=== PATIENT | male | born 1930 | race Native Hawaiian/Other Pacific Islander ===

== ENCOUNTER 2022-03-26 13:31 | Inpatient (IN) | payer MEDICARE, OTHER ==
[~2022-03-26] VITALS: Ht 177.8 cm; Wt 90.0 kg
[2022-03-26] MEDS ORDERED: ALLO-97 PO (13:47)
[2022-03-26] MEDS ORDERED: SODIUM CHLORIDE 0.9% 100 ML ONE (13:47)
[2022-03-26] MEDS ORDERED: APIX2.5T PO (13:47)
[2022-03-26] MEDS ORDERED: IOHEXOL 350 MG/ML 100 ML VIAL ONE (13:47)
[2022-03-26] MEDS ORDERED: INSU100V SQ (13:52)
[2022-03-26] MEDS ORDERED: GABA-1216 PO (13:52)
[2022-03-26] MEDS ORDERED: METO25 PO (13:52)
[2022-03-26] MEDS ORDERED: CHOL25TA4 PO (13:52)
[2022-03-26] MEDS ORDERED: PRAV20TA4 PO (13:52)
[2022-03-26] MEDS ORDERED: TAMS-13 PO (13:52)
[2022-03-26] MEDS ORDERED: INSLAN SQ (13:52)
[2022-03-26] MEDS ORDERED: FAMO20 PO (13:52)
[2022-03-26] MEDS ORDERED: SEMA7TAB2 PO (13:52)
[2022-03-26] MEDS ORDERED: FINA-27 PO (13:52)
[2022-03-26] MEDS ORDERED: QUET25TA PO (13:52)
[2022-03-26 14:07] LABS: BASOPHILS % (AUTO) 0.6 % (0.0-2.0); EOSINOPHILS % (AUTO) 3.4 % (1.0-6.0); HEMOGLOBIN 11.8 g/dL (13.5-17.5); LYMPHOCYTES % (AUTO) 22.5 % (22.0-44.0); MEAN CORPUSCULAR HEMOGLOBIN 31.9 pg (26.0-34.0); MEAN CORPUSCULAR HGB CONC 31.9 G/dL (31.0-37.0); MEAN CORPUSCULAR VOLUME 100 fL (80-100); MONOCYTES # (AUTO) 0.4 K/uL (0.1-1.0); MONOCYTES % (AUTO) 9.6 % (2.0-9.0); NEUTROPHILS # (AUTO) 2.8 K/uL (1.8-7.7); NEUTROPHILS % (AUTO) 63.9 % (40.0-70.0); PLATELET COUNT (AUTO) 123 K/uL (150-450); RED BLOOD CELL COUNT(AUTO) 3.69 MIL/uL (4.50-5.90); RED CELL DISTRIBUTION WIDTH 17.5 % (11.5-14.5)
[2022-03-26 14:26] LABS: CALCIUM, TOTAL 8.6 mg/dL (8.8-10.5); CREATININE 1.96 mg/dL (0.60-1.30)
[2022-03-26 14:27] LABS: INR 1.3 (0.9-1.1); PROTHROMBIN TIME 13.5 SEC (9.4-11.6)
[2022-03-26 14:31] LABS: ALBUMIN 2.7 g/dL (3.4-5.0); BILIRUBIN,TOTAL 1.9 mg/dL (0.1-1.0); TOTAL PROTEIN, SERUM 7.8 g/dL (6.4-8.2)
[2022-03-26] MEDS ORDERED: SODIUM CHLORIDE 0.9% 500 ML IV ONE ×2 (14:45)
[2022-03-26] MEDS ORDERED: POTA10CA45 PO (14:46)
[2022-03-26 14:50] LABS: APPEARANCE,URINE CLEAR (CLEAR); BILIRUBIN,URINE NEGATIVE (NEGATIVE); GLUCOSE, URINE (UA) NEGATIVE (NEGATIVE); KETONES,URINE NEGATIVE (NEGATIVE); LEUKOCYTE ESTERASE ,URINE NEGATIVE (NEGATIVE); NITRATE,URINE NEGATIVE (NEGATIVE); OCCULT BLOOD,URINE NEGATIVE (NEGATIVE); PROTEIN,URINE NEGATIVE (NEGATIVE); SPECIFIC GRAVITIY, URINE 1.021 (1.003-1.030); UROBILINOGEN,URINE <=1.0 mg/dL (<=1.0)
[2022-03-26 14:56] LABS: AMPHET/METH SCREEN,URINE NEGATIVE (NEGATIVE); BARBITURATE SCREEN, URINE NEGATIVE (NEGATIVE); BENZODIAZEPINES SCREEN,URINE NEGATIVE (NEGATIVE); CANNABINOID SCREEN,URINE NEGATIVE (NEGATIVE); COCAINE SCREEN,URINE NEGATIVE (NEGATIVE); METHADONE SCREEN, URINE NEGATIVE (NEGATIVE); OPIATE SCREEN,URINE NEGATIVE (NEGATIVE); PHENCYCLIDINE SCREEN,URINE NEGATIVE (NEGATIVE)
[2022-03-26 15:13] LABS: BACTERIA,URINE None Seen /HPF (None Seen); RBC,URINE None Seen /HPF (0-2); WBC,URINE None Seen /HPF (0-5)
[2022-03-26 17:22] LABS: COVID AG,FIA SOURCE NASAL SWAB
[2022-03-26] MEDS ORDERED: BISACODYL 10 MG RECTAL RECTAL SUPPOSITORY PR PRN (20:30)
[2022-03-26] MEDS ORDERED: ONDANSETRON HCL 4 MG/2 ML VIAL IVP PRN (20:30)
[2022-03-26] MEDS ORDERED: MAGNESIUM HYDROXIDE SUSPENSION 30 ML UDCUP PO PRN (20:30)
[2022-03-26] MEDS ORDERED: HYDROCODONE/ACETAMINOPHEN 5-325 MG TABLET PO PRN (20:30)
[2022-03-26] MEDS ORDERED: *CLINICAL-LEVOFLOXACIN IVPB DOSING CLINICAL ONE (20:45)
[2022-03-26] MEDS: METOPROLOL TARTRATE 25 MG TABLET PO SCH (21:00)
[2022-03-26] MEDS: PRAVASTATIN SODIUM 20 MG TABLET PO SCH (21:00)
[2022-03-26] MEDS: DOCUSATE SODIUM 100 MG CAPSULE PO SCH (21:00)
[2022-03-26] MEDS: TAMSULOSIN HCL 0.4 MG CAPSULE PO SCH (21:00)
[2022-03-26] MEDS: INSULIN GLARGINE,HUM.REC.ANLOG 100 UNITS/ML SQ SCH (21:20)
[2022-03-26] MEDS: LEVOFLOXACIN 750 MG/D5% WATER 150 ML IV SCH (21:33)
[2022-03-26 21:46] LABS: GLUCOSE,POINT OF CARE 102 MG/DL (70-110)
[2022-03-27 00:27] VITALS: BP 153/70
[2022-03-27 04:12] VITALS: BP 152/81
[2022-03-27 06:36] LABS: BASOPHILS % (AUTO) 0.2 % (0.0-2.0); EOSINOPHILS % (AUTO) 1.2 % (1.0-6.0); HEMATOCRIT 35.9 % (41-53); HEMOGLOBIN 11.6 g/dL (13.5-17.5); LYMPHOCYTES # (AUTO) 0.7 K/uL (1.0-4.8); MEAN CORPUSCULAR HEMOGLOBIN 32.1 pg (26.0-34.0); MEAN CORPUSCULAR HGB CONC 32.3 G/dL (31.0-37.0); MEAN CORPUSCULAR VOLUME 99 fL (80-100); MONOCYTES # (AUTO) 0.6 K/uL (0.1-1.0); MONOCYTES % (AUTO) 10.1 % (2.0-9.0); NEUTROPHILS # (AUTO) 4.2 K/uL (1.8-7.7); NEUTROPHILS % (AUTO) 76.5 % (40.0-70.0); PLATELET COUNT (AUTO) 110 K/uL (150-450); RED BLOOD CELL COUNT(AUTO) 3.61 MIL/uL (4.50-5.90); RED CELL DISTRIBUTION WIDTH 17.6 % (11.5-14.5)
[2022-03-27 06:57] LABS: CALCIUM, TOTAL 8.4 mg/dL (8.8-10.5); CREATININE 1.73 mg/dL (0.60-1.30); POTASSIUM 4.1 mmol/L (3.5-5.1)
[2022-03-27 07:30] VITALS: BP 138/74
[2022-03-27] MEDS ORDERED: PERMETHRIN 5% 60 GM CREAM TP ONE (08:00)
[2022-03-27] MEDS: APIXABAN 2.5 MG TABLET PO SCH ×3 (09:00→21:00)
[2022-03-27] MEDS: PANTOPRAZOLE SODIUM 40 MG DR TABLET PO SCH (09:35)
[2022-03-27] MEDS: DOCUSATE SODIUM 100 MG CAPSULE PO SCH ×2 (09:35→21:00)
[2022-03-27] MEDS: ALLOPURINOL 100 MG TABLET PO SCH (09:36)
[2022-03-27] MEDS: CHOLECALCIFEROL (VIT D3) 1,000 UNITS [25 MCG] TABLET PO SCH (09:36)
[2022-03-27] MEDS: FINASTERIDE 5 MG TABLET PO SCH (09:36)
[2022-03-27] MEDS: METOPROLOL TARTRATE 25 MG TABLET PO SCH ×2 (09:36→21:00)
[2022-03-27 11:31] VITALS: BP 152/83
[2022-03-27 15:40] VITALS: BP 159/94
[2022-03-27 20:16] LABS: GLUCOMETER DEV NAME(LOC) 5S.1B; GLUCOSE,POINT OF CARE 100 MG/DL (70-110)
[2022-03-27] MEDS: DEXTROSE 5%-0.45% SODIUM CHL 1,000 ML IV SCH (20:50)
[2022-03-27] MEDS: INSULIN GLARGINE,HUM.REC.ANLOG 100 UNITS/ML SQ SCH (20:52)
[2022-03-27] MEDS: TAMSULOSIN HCL 0.4 MG CAPSULE PO SCH (21:00)
[2022-03-27] MEDS: PRAVASTATIN SODIUM 20 MG TABLET PO SCH (21:00)
[2022-03-28] VITALS (7 sets, daily range): BP systolic 111–153; BP diastolic 89–118
[2022-03-28 06:45] LABS: BASOPHILS % (AUTO) 0.2 % (0.0-2.0); EOSINOPHILS % (AUTO) 0.2 % (1.0-6.0); HEMATOCRIT 36.6 % (41-53); HEMOGLOBIN 11.8 g/dL (13.5-17.5); LYMPHOCYTES # (AUTO) 0.6 K/uL (1.0-4.8); LYMPHOCYTES % (AUTO) 8.1 % (22.0-44.0); MEAN CORPUSCULAR HGB CONC 32.3 G/dL (31.0-37.0); MEAN CORPUSCULAR VOLUME 99 fL (80-100); MONOCYTES # (AUTO) 0.8 K/uL (0.1-1.0); MONOCYTES % (AUTO) 10.9 % (2.0-9.0); NEUTROPHILS % (AUTO) 80.6 % (40.0-70.0); PLATELET COUNT (AUTO) 123 K/uL (150-450); RED BLOOD CELL COUNT(AUTO) 3.69 MIL/uL (4.50-5.90); RED CELL DISTRIBUTION WIDTH 17.9 % (11.5-14.5)
[2022-03-28 07:01] LABS: CALCIUM, TOTAL 8.6 mg/dL (8.8-10.5); CREATININE 1.73 mg/dL (0.60-1.30); POTASSIUM 3.8 mmol/L (3.5-5.1)
[2022-03-28] MEDS: FINASTERIDE 5 MG TABLET PO SCH (09:00)
[2022-03-28] MEDS: METOPROLOL TARTRATE 25 MG TABLET PO SCH ×2 (09:00→19:57)
[2022-03-28] MEDS: CHOLECALCIFEROL (VIT D3) 1,000 UNITS [25 MCG] TABLET PO SCH (09:00)
[2022-03-28] MEDS: PANTOPRAZOLE SODIUM 40 MG DR TABLET PO SCH (09:00)
[2022-03-28] MEDS: DOCUSATE SODIUM 100 MG CAPSULE PO SCH ×2 (09:00→19:57)
[2022-03-28] MEDS: ALLOPURINOL 100 MG TABLET PO SCH (09:00)
[2022-03-28] MEDS ORDERED: HydrALAZINE HCL 20 MG/ML VIAL IVP PRN (11:45)
[2022-03-28] MEDS: DEXTROSE 5%-0.45% SODIUM CHL 1,000 ML IV SCH (13:06)
[2022-03-28] MEDS ORDERED: LORazepam 2 MG/ML VIAL IVP PRN (16:15)
[2022-03-28] MEDS: PRAVASTATIN SODIUM 20 MG TABLET PO SCH (19:57)
[2022-03-28] MEDS: TAMSULOSIN HCL 0.4 MG CAPSULE PO SCH (19:57)
[2022-03-28] MEDS: NYSTATIN 30 GM CREAM TP SCH (19:57)
[2022-03-28] MEDS: HEPARIN SODIUM,PORCINE 5,000 UNITS/ML VIAL SQ SCH (19:58)
[2022-03-28] MEDS: INSULIN GLARGINE,HUM.REC.ANLOG 100 UNITS/ML SQ SCH (20:11)
[2022-03-28] MEDS: LEVOFLOXACIN 750 MG/D5% WATER 150 ML IV SCH (20:13)
[2022-03-29 03:35] VITALS: BP 116/69
[2022-03-29 06:58] LABS: BASOPHILS % (AUTO) 0.2 % (0.0-2.0); EOSINOPHILS % (AUTO) 0.2 % (1.0-6.0); HEMATOCRIT 37.1 % (41-53); HEMOGLOBIN 11.9 g/dL (13.5-17.5); LYMPHOCYTES # (AUTO) 0.8 K/uL (1.0-4.8); LYMPHOCYTES % (AUTO) 11.9 % (22.0-44.0); MEAN CORPUSCULAR HEMOGLOBIN 32.2 pg (26.0-34.0); MEAN CORPUSCULAR HGB CONC 32.2 G/dL (31.0-37.0); MEAN CORPUSCULAR VOLUME 100 fL (80-100); MONOCYTES # (AUTO) 0.7 K/uL (0.1-1.0); MONOCYTES % (AUTO) 10.1 % (2.0-9.0); NEUTROPHILS # (AUTO) 5.3 K/uL (1.8-7.7); NEUTROPHILS % (AUTO) 77.6 % (40.0-70.0); PLATELET COUNT (AUTO) 121 K/uL (150-450); RED BLOOD CELL COUNT(AUTO) 3.71 MIL/uL (4.50-5.90); RED CELL DISTRIBUTION WIDTH 18.1 % (11.5-14.5)
[2022-03-29 07:08] LABS: CALCIUM, TOTAL 8.5 mg/dL (8.8-10.5); CREATININE 1.85 mg/dL (0.60-1.30); POTASSIUM 4.3 mmol/L (3.5-5.1)
[2022-03-29 08:27] VITALS: BP 114/75
[2022-03-29] MEDS: METOPROLOL TARTRATE 25 MG TABLET PO SCH ×2 (09:00→20:00)
[2022-03-29] MEDS: ALLOPURINOL 100 MG TABLET PO SCH (09:00)
[2022-03-29] MEDS: FINASTERIDE 5 MG TABLET PO SCH (09:00)
[2022-03-29] MEDS: DOCUSATE SODIUM 100 MG CAPSULE PO SCH ×2 (09:00→20:00)
[2022-03-29] MEDS: CHOLECALCIFEROL (VIT D3) 1,000 UNITS [25 MCG] TABLET PO SCH (09:00)
[2022-03-29] MEDS: PANTOPRAZOLE SODIUM 40 MG DR TABLET PO SCH (09:00)
[2022-03-29] MEDS: HEPARIN SODIUM,PORCINE 5,000 UNITS/ML VIAL SQ SCH ×2 (09:58→20:00)
[2022-03-29] MEDS: NYSTATIN 30 GM CREAM TP SCH ×2 (10:01→20:24)
[2022-03-29 11:41] VITALS: BP 122/77
[2022-03-29] MEDS ORDERED: WATER FOR INJECTION,STERILE 500 ML in DEXTROSE 5%-WATER 500 ML IV ONE (12:00)
[2022-03-29 12:36] LABS: GLUCOMETER DEV NAME(LOC) 5S.1B; GLUCOSE,POINT OF CARE 119 MG/DL (70-110)
[2022-03-29 15:12] VITALS: BP 115/70
[2022-03-29] MEDS: TAMSULOSIN HCL 0.4 MG CAPSULE PO SCH (20:00)
[2022-03-29] MEDS: PRAVASTATIN SODIUM 20 MG TABLET PO SCH (20:00)
[2022-03-29 20:10] VITALS: BP 118/69
[2022-03-29] MEDS: INSULIN GLARGINE,HUM.REC.ANLOG 100 UNITS/ML SQ SCH (20:25)
[2022-03-29 21:11] LABS: GLUCOMETER DEV NAME(LOC) 5S.1B; GLUCOSE,POINT OF CARE 147 MG/DL (70-110)
[2022-03-30 00:35] VITALS: BP 130/67
[2022-03-30 04:00] VITALS: BP 139/86
[2022-03-30 07:52] VITALS: BP 135/88
[2022-03-30] MEDS: METOPROLOL TARTRATE 25 MG TABLET PO SCH ×2 (08:48→21:00)
[2022-03-30] MEDS: ALLOPURINOL 100 MG TABLET PO SCH (08:49)
[2022-03-30] MEDS: PANTOPRAZOLE SODIUM 40 MG DR TABLET PO SCH (08:49)
[2022-03-30] MEDS: HEPARIN SODIUM,PORCINE 5,000 UNITS/ML VIAL SQ SCH ×2 (08:49→21:00)
[2022-03-30] MEDS: DOCUSATE SODIUM 100 MG CAPSULE PO SCH ×2 (08:49→21:00)
[2022-03-30] MEDS: CHOLECALCIFEROL (VIT D3) 1,000 UNITS [25 MCG] TABLET PO SCH (08:49)
[2022-03-30] MEDS: FINASTERIDE 5 MG TABLET PO SCH (08:49)
[2022-03-30] MEDS: NYSTATIN 30 GM CREAM TP SCH ×2 (08:50→21:45)
[2022-03-30 11:13] VITALS: BP 144/71
[2022-03-30] MEDS ORDERED: LORazepam 2 MG/ML VIAL IVP ONE ×2 (14:45→15:30)
[2022-03-30 15:14] VITALS: BP 98/58
[2022-03-30 19:27] VITALS: BP 126/88
[2022-03-30] MEDS: TAMSULOSIN HCL 0.4 MG CAPSULE PO SCH (21:00)
[2022-03-30] MEDS: INSULIN GLARGINE,HUM.REC.ANLOG 100 UNITS/ML SQ SCH (21:00)
[2022-03-30] MEDS: PRAVASTATIN SODIUM 20 MG TABLET PO SCH (21:00)
[2022-03-30] MEDS ORDERED: SODIUM CHLORIDE 0.9% 500 ML IV ONE (21:16)
[2022-03-30] MEDS: LEVOFLOXACIN 750 MG/D5% WATER 150 ML IV SCH (21:17)
[2022-03-30] MEDS ORDERED: SODIUM CHLORIDE 0.45% 1,000 ML IV ONE (22:30)
[2022-03-31 00:03] VITALS: BP 132/67
[2022-03-31 04:56] VITALS: BP 128/80
[2022-03-31 07:50] VITALS: BP 151/92
[2022-03-31 08:22] LABS: GLUCOMETER DEV NAME(LOC) 5S.2B; GLUCOSE,POINT OF CARE 78 MG/DL (70-110)
[2022-03-31] MEDS: PANTOPRAZOLE SODIUM 40 MG DR TABLET PO SCH (09:00)
[2022-03-31] MEDS: ALLOPURINOL 100 MG TABLET PO SCH (09:00)
[2022-03-31] MEDS: CHOLECALCIFEROL (VIT D3) 1,000 UNITS [25 MCG] TABLET PO SCH (09:00)
[2022-03-31] MEDS: FINASTERIDE 5 MG TABLET PO SCH (09:00)
[2022-03-31] MEDS: METOPROLOL TARTRATE 25 MG TABLET PO SCH ×2 (09:00→20:32)
[2022-03-31] MEDS: DOCUSATE SODIUM 100 MG CAPSULE PO SCH ×2 (09:00→20:32)
[2022-03-31] MEDS: HEPARIN SODIUM,PORCINE 5,000 UNITS/ML VIAL SQ SCH ×2 (09:43→21:00)
[2022-03-31] MEDS: NYSTATIN 30 GM CREAM TP SCH ×2 (09:44→21:07)
[2022-03-31 11:55] VITALS: BP 133/80
[2022-03-31] MEDS: DEXTROSE 50%-WATER 25 GM/50 ML SYRINGE IVP PRN (12:51)
[2022-03-31] MEDS: DEXTROSE 5%-0.9% SODIUM CHL 1,000 ML IV SCH (13:11)
[2022-03-31 17:00] VITALS: BP 120/60
[2022-03-31 20:18] VITALS: BP 135/71
[2022-03-31] MEDS: ZOLPIDEM TARTRATE 5 MG TABLET PO PRN (20:31)
[2022-03-31] MEDS: PRAVASTATIN SODIUM 20 MG TABLET PO SCH (20:32)
[2022-03-31] MEDS: TAMSULOSIN HCL 0.4 MG CAPSULE PO SCH (20:32)
[2022-03-31] MEDS: INSULIN GLARGINE,HUM.REC.ANLOG 100 UNITS/ML SQ SCH (20:39)
[2022-03-31 21:11] LABS: GLUCOMETER DEV NAME(LOC) 5S.2B; GLUCOSE,POINT OF CARE 131 MG/DL (70-110)
[2022-03-31 21:11] LABS: GLUCOMETER DEV NAME(LOC) 5S.2B; GLUCOSE,POINT OF CARE 63 MG/DL (70-110)
[2022-03-31 21:12] LABS: GLUCOMETER DEV NAME(LOC) 5S.2B; GLUCOSE,POINT OF CARE 166 MG/DL (70-110)
[2022-04-01 04:31] LABS: GLUCOMETER DEV NAME(LOC) 5S.1B; GLUCOSE,POINT OF CARE 133 MG/DL (70-110)
[2022-04-01 05:05] VITALS: BP 140/72
[2022-04-01 08:00] VITALS: BP 138/70
[2022-04-01] MEDS: DOCUSATE SODIUM 100 MG CAPSULE PO SCH ×2 (09:37→20:13)
[2022-04-01] MEDS: DEXTROSE 5%-0.9% SODIUM CHL 1,000 ML IV SCH ×2 (09:37→17:50)
[2022-04-01] MEDS: CHOLECALCIFEROL (VIT D3) 1,000 UNITS [25 MCG] TABLET PO SCH (09:38)
[2022-04-01] MEDS: METOPROLOL TARTRATE 25 MG TABLET PO SCH ×2 (09:38→20:13)
[2022-04-01] MEDS: ALLOPURINOL 100 MG TABLET PO SCH (09:38)
[2022-04-01] MEDS: FINASTERIDE 5 MG TABLET PO SCH (09:38)
[2022-04-01] MEDS: PANTOPRAZOLE SODIUM 40 MG DR TABLET PO SCH (09:38)
[2022-04-01] MEDS: HEPARIN SODIUM,PORCINE 5,000 UNITS/ML VIAL SQ SCH ×2 (09:39→20:12)
[2022-04-01] MEDS: NYSTATIN 30 GM CREAM TP SCH ×2 (09:39→22:44)
[2022-04-01] MEDS: DEXTROSE 50%-WATER 25 GM/50 ML SYRINGE IVP PRN (17:49)
[2022-04-01 18:16] LABS: GLUCOMETER DEV NAME(LOC) 5N.1C; GLUCOSE,POINT OF CARE 81 MG/DL (70-110)
[2022-04-01 18:26] LABS: GLUCOMETER DEV NAME(LOC) 5S.2B; GLUCOSE,POINT OF CARE 156 MG/DL (70-110)
[2022-04-01 18:26] LABS: GLUCOMETER DEV NAME(LOC) 5S.2B; GLUCOSE,POINT OF CARE 48 MG/DL (70-110)
[2022-04-01 19:46] VITALS: BP 126/72
[2022-04-01 20:06] LABS: GLUCOMETER DEV NAME(LOC) 5S.1B; GLUCOSE,POINT OF CARE 124 MG/DL (70-110)
[2022-04-01] MEDS: LEVOFLOXACIN 750 MG/D5% WATER 150 ML IV SCH (20:12)
[2022-04-01] MEDS: PRAVASTATIN SODIUM 20 MG TABLET PO SCH (20:13)
[2022-04-01] MEDS: TAMSULOSIN HCL 0.4 MG CAPSULE PO SCH (20:13)
[2022-04-01] MEDS: INSULIN GLARGINE,HUM.REC.ANLOG 100 UNITS/ML SQ SCH (21:00)
[2022-04-02 01:01] VITALS: BP 96/61
[2022-04-02] MEDS: ZOLPIDEM TARTRATE 5 MG TABLET PO PRN (02:47)
[2022-04-02 05:01] VITALS: BP 110/58
[2022-04-02] MEDS: DEXTROSE 5%-0.9% SODIUM CHL 1,000 ML IV SCH (05:55)
[2022-04-02 06:31] LABS: GLUCOMETER DEV NAME(LOC) 5S.2B; GLUCOSE,POINT OF CARE 103 MG/DL (70-110)
[2022-04-02 07:35] VITALS: BP 117/72
[2022-04-02 07:42] LABS: BASOPHILS % (AUTO) 0.2 % (0.0-2.0); EOSINOPHILS % (AUTO) 1.6 % (1.0-6.0); HEMATOCRIT 35.2 % (41-53); HEMOGLOBIN 10.9 g/dL (13.5-17.5); LYMPHOCYTES # (AUTO) 0.7 K/uL (1.0-4.8); LYMPHOCYTES % (AUTO) 12.5 % (22.0-44.0); MEAN CORPUSCULAR HGB CONC 30.9 G/dL (31.0-37.0); MEAN CORPUSCULAR VOLUME 101 fL (80-100); MONOCYTES # (AUTO) 0.6 K/uL (0.1-1.0); MONOCYTES % (AUTO) 10.4 % (2.0-9.0); NEUTROPHILS # (AUTO) 4.4 K/uL (1.8-7.7); NEUTROPHILS % (AUTO) 75.3 % (40.0-70.0); PLATELET COUNT (AUTO) 111 K/uL (150-450); RED BLOOD CELL COUNT(AUTO) 3.51 MIL/uL (4.50-5.90); RED CELL DISTRIBUTION WIDTH 18.5 % (11.5-14.5)
[2022-04-02 08:24] LABS: CALCIUM, TOTAL 8.4 mg/dL (8.8-10.5); CREATININE 2.35 mg/dL (0.60-1.30)
[2022-04-02] MEDS: CHOLECALCIFEROL (VIT D3) 1,000 UNITS [25 MCG] TABLET PO SCH (08:49)
[2022-04-02] MEDS: FINASTERIDE 5 MG TABLET PO SCH (08:49)
[2022-04-02] MEDS: HEPARIN SODIUM,PORCINE 5,000 UNITS/ML VIAL SQ SCH ×2 (08:49→19:44)
[2022-04-02] MEDS: METOPROLOL TARTRATE 25 MG TABLET PO SCH ×2 (08:49→19:44)
[2022-04-02] MEDS: DOCUSATE SODIUM 100 MG CAPSULE PO SCH ×2 (08:49→20:54)
[2022-04-02] MEDS: ALLOPURINOL 100 MG TABLET PO SCH (08:50)
[2022-04-02] MEDS: NYSTATIN 30 GM CREAM TP SCH ×2 (08:50→21:04)
[2022-04-02] MEDS: PANTOPRAZOLE SODIUM 40 MG DR TABLET PO SCH (08:50)
[2022-04-02] MEDS: MORPHINE SULFATE 2 MG/ML SYRINGE IVP PRN (10:51)
[2022-04-02] MEDS: DEXTROSE 50%-WATER 25 GM/50 ML SYRINGE IVP PRN (11:45)
[2022-04-02] MEDS ORDERED: DEXTROSE 5%-0.45% SODIUM CHL 1,000 ML IV SCH (12:15)
[2022-04-02 13:31] LABS: GLUCOMETER DEV NAME(LOC) 5S.1B; GLUCOSE,POINT OF CARE 67 MG/DL (70-110)
[2022-04-02 13:31] LABS: GLUCOMETER DEV NAME(LOC) 5S.1B; GLUCOSE,POINT OF CARE 202 MG/DL (70-110)
[2022-04-02 14:25] LABS: ABG HCO3 19.3 mmol/L (22.0-26.0); ABG METHEMOGLOBIN 0.3 % (0.0-1.5); ABG OXYGEN CONTENT 17.5 mL/dL (15.0-23.0); ABG OXYGEN SATURATION 99.4 % (95.0-98.0); ABG OXYHEMOGLOBIN 98.1 % (94.0-100.0); ABG PCO2 55 mmHg (35-45); ABG PH 7.213 (7.35-7.450); ABG TOTAL HEMOGLOBIN 12.3 G/dL (12.0-18.0); PO2, ARTERIAL BG 243.1 mmHg (71.0-79.0); SOURCE, BLOOD GAS ARTERIAL; TEMPERATURE, FAHRENHEIT, BG 98.5 FAHREN (96.0-98.6)
[2022-04-02 14:26] LABS: ABG A-A DIFF O2 414.9 mmHg (10-20.0); O2 DEVICE,BLOOD GAS VENTILATOR (ROOM AIR); PEEP,BG 5 cm H2O; SITE, BLOOD GAS RT BRACHIAL; SPONTANEOUS VT, BG 425 ml; VT, ABG 420 ml
[2022-04-02 14:38] LABS: CALCIUM, TOTAL 8.6 mg/dL (8.8-10.5); CREATININE 2.64 mg/dL (0.60-1.30); POTASSIUM 5.1 mmol/L (3.5-5.1)
[2022-04-02] MEDS ORDERED: SODIUM CHLORIDE 0.9% 250 ML IV ONE (14:52)
[2022-04-02] MEDS ORDERED: FentaNYL CIT 1000MCG/0.9% NACL 100 ML IV PRN (15:15)
[2022-04-02 16:00] VITALS: BP 129/71
[2022-04-02] MEDS ORDERED: SODIUM BICARBONATE [ADULT] 8.4% 50 MEQ/50 ML SYRINGE IVP ONE (16:30)
[2022-04-02] MEDS ORDERED: 0.9% SODIUM CHLORIDE 10 ML SYRINGE IVP ONE (16:30)
[2022-04-02] MEDS ORDERED: ATROPINE SULFATE 0.1 MG/ML 10 ML SYRINGE IVP ONE (16:30)
[2022-04-02] MEDS ORDERED: EPINEPHrine 1:10,000 [1 MG/10 ML] SYRINGE IVP ONE (16:30)
[2022-04-02] MEDS ORDERED: DOPamine HCL/D5W 400 MG/250 ML IV BAG IV ONE (16:30)
[2022-04-02] MEDS: PIPERACILLIN SODIUM/TAZOBACTAM 2.25 GM in DEXTROSE 5%-WATER 50 ML IV SCH ×2 (17:49→23:01)
[2022-04-02] MEDS: PROPOFOL 1000 MG/ISO-OSM 100 ML IV PRN (18:57)
[2022-04-02] MEDS ORDERED: VASOPRESSIN 40 UNITS in DEXTROSE 5%-WATER 98 ML IV PRN (19:00)
[2022-04-02] MEDS: DEXTROSE 5%-WATER 1,000 ML IV SCH (19:28)
[2022-04-02 20:00] VITALS: BP 111/61
[2022-04-02] MEDS ORDERED: NOREPINEPHRINE 8 MG/D5%-WATER 250 ML IV PRN (20:30)
[2022-04-02 20:35] LABS: ALBUMIN 2.4 g/dL (3.4-5.0); BILIRUBIN,TOTAL 2.7 mg/dL (0.1-1.0); CALCIUM, TOTAL 8.3 mg/dL (8.8-10.5); CREATININE 2.6 mg/dL (0.60-1.30); MAGNESIUM 2.8 mg/dL (1.80-2.40); PHOSPHORUS 4.7 mg/dL (2.5-4.9); POTASSIUM 5.2 mmol/L (3.5-5.1); TOTAL PROTEIN, SERUM 7.5 g/dL (6.4-8.2)
[2022-04-02] MEDS: INSULIN GLARGINE,HUM.REC.ANLOG 100 UNITS/ML SQ SCH (20:50)
[2022-04-02] MEDS: TAMSULOSIN HCL 0.4 MG CAPSULE PO SCH (20:54)
[2022-04-02] MEDS ORDERED: APIXABAN 2.5 MG TABLET PO SCH (21:00)
[2022-04-02] MEDS ORDERED: HEPARIN SODIUM 25000 UNITS/D5W 250 ML IV PRN (21:15)
[2022-04-02] MEDS ORDERED: HEPARIN SODIUM,PORCINE 5,000 UNITS/ML VIAL IVP PRN ×2 (21:15)
[2022-04-02 21:43] LABS: ABG BASE EXCESS -3.8 mmol/L (-2.0-3.0); ABG CARBOXYHEMOGLOBIN 0.6 % (0.0-1.5); ABG HCO3 21.2 mmol/L (22.0-26.0); ABG METHEMOGLOBIN 0.3 % (0.0-1.5); ABG OXYGEN CONTENT 17.4 mL/dL (15.0-23.0); ABG OXYGEN SATURATION 97.4 % (95.0-98.0); ABG OXYHEMOGLOBIN 96.5 % (94.0-100.0); ABG PCO2 44 mmHg (35-45); ABG PH 7.319 (7.35-7.450); ABG TOTAL HEMOGLOBIN 12.7 G/dL (12.0-18.0); PO2, ARTERIAL BG 98.8 mmHg (71.0-79.0); SOURCE, BLOOD GAS ARTERIAL; TEMPERATURE, FAHRENHEIT, BG 96.7 FAHREN (96.0-98.6)
[2022-04-02 21:44] LABS: SITE, BLOOD GAS RT RADIAL
[2022-04-02 21:45] LABS: O2 DEVICE,BLOOD GAS VENT (ROOM AIR); PEEP,BG 5 cm H2O; VT, ABG 460 ml
[2022-04-02] MEDS ORDERED: DOPamine 400MG/D5W[STANDARD] 250 ML IV ONE (21:48)
[2022-04-02 21:57] LABS: GLUCOSE,POINT OF CARE 91 MG/DL (70-110)
[2022-04-02 21:57] LABS: GLUCOSE,POINT OF CARE 90 MG/DL (70-110)
[2022-04-02] MEDS: DOPamine 400MG/D5W[STANDARD] 250 ML IV PRN (22:01)
[2022-04-02] MEDS: ACETAMINOPHEN 325 MG TABLET PO PRN (22:10)
[2022-04-02] MEDS: PRAVASTATIN SODIUM 20 MG TABLET PO SCH (22:10)
[2022-04-03] VITALS: BP 113/74
[2022-04-03 01:06] LABS: GLUCOSE,POINT OF CARE 92 MG/DL (70-110)
[2022-04-03] MEDS ORDERED: HEPARIN SODIUM 25000 UNITS/D5W 250 ML IV PRN (01:30)
[2022-04-03 01:45] LABS: ABG HCO3 17.9 mmol/L (22.0-26.0); ABG METHEMOGLOBIN 0.3 % (0.0-1.5); SOURCE, BLOOD GAS ARTERIAL
[2022-04-03] MEDS: PROPOFOL 1000 MG/ISO-OSM 100 ML IV PRN ×2 (01:47→11:57)
[2022-04-03 01:53] LABS: ALBUMIN 2.4 g/dL (3.4-5.0); CALCIUM, TOTAL 8.3 mg/dL (8.8-10.5); CREATININE 2.69 mg/dL (0.60-1.30); MAGNESIUM 2.8 mg/dL (1.80-2.40); POTASSIUM 5.4 mmol/L (3.5-5.1); TOTAL PROTEIN, SERUM 7.6 g/dL (6.4-8.2)
[2022-04-03 02:08] LABS: ABG BASE EXCESS -8.5 mmol/L (-2.0-3.0); ABG CARBOXYHEMOGLOBIN 0.6 % (0.0-1.5); ABG OXYGEN CONTENT 18.1 mL/dL (15.0-23.0); ABG OXYGEN SATURATION 99.2 % (95.0-98.0); ABG OXYHEMOGLOBIN 98.3 % (94.0-100.0); ABG PCO2 39 mmHg (35-45); ABG PH 7.286 (7.35-7.450); ABG TOTAL HEMOGLOBIN 12.8 G/dL (12.0-18.0); PO2, ARTERIAL BG 172.6 mmHg (71.0-79.0); TEMPERATURE, FAHRENHEIT, BG 92.3 FAHREN (96.0-98.6)
[2022-04-03 02:09] LABS: ABG A-A DIFF O2 217.2 mmHg (10-20.0); O2 DEVICE,BLOOD GAS VENT (ROOM AIR); PEEP,BG 5 cm H2O; SITE, BLOOD GAS RT RADIAL; VT, ABG 460 ml
[2022-04-03] MEDS ORDERED: CALCIUM GLUCONATE 100 MG/ML 10 ML IVP ONE (03:30)
[2022-04-03] MEDS ORDERED: INSULIN REGULAR, HUMAN 100 UNITS/ML IVP ONE (03:30)
[2022-04-03] MEDS ORDERED: DEXTROSE 50%-WATER 25 GM/50 ML SYRINGE IVP ONE (03:30)
[2022-04-03 04:00] VITALS: BP 84/61
[2022-04-03] MEDS: PIPERACILLIN SODIUM/TAZOBACTAM 2.25 GM in DEXTROSE 5%-WATER 50 ML IV SCH ×3 (04:24→17:41)
[2022-04-03] MEDS: DOPamine 400MG/D5W[STANDARD] 250 ML IV PRN ×3 (04:44→19:56)
[2022-04-03 06:37] LABS: GLUCOSE,POINT OF CARE 111 MG/DL (70-110)
[2022-04-03 07:58] LABS: ABG BASE EXCESS -6.1 mmol/L (-2.0-3.0); ABG CARBOXYHEMOGLOBIN 0.7 % (0.0-1.5); ABG HCO3 19.5 mmol/L (22.0-26.0); ABG METHEMOGLOBIN 0.3 % (0.0-1.5); ABG OXYGEN CONTENT 17.4 mL/dL (15.0-23.0); ABG PCO2 41 mmHg (35-45); ABG PH 7.306 (7.35-7.450); ABG TOTAL HEMOGLOBIN 12.8 G/dL (12.0-18.0); PO2, ARTERIAL BG 87.1 mmHg (71.0-79.0); SITE, BLOOD GAS LFT RADIAL; SOURCE, BLOOD GAS ARTERIAL; TEMPERATURE, FAHRENHEIT, BG 93.8 FAHREN (96.0-98.6)
[2022-04-03 07:59] LABS: ABG A-A DIFF O2 153.2 mmHg (10-20.0); O2 DEVICE,BLOOD GAS VENTILATOR (ROOM AIR); PEEP,BG 5 cm H2O; VT, ABG 460 ml
[2022-04-03 08:00] VITALS: BP 101/62
[2022-04-03] MEDS: METOPROLOL TARTRATE 25 MG TABLET PO SCH ×2 (08:53→21:00)
[2022-04-03 09:03] LABS: BASOPHILS % (AUTO) 0.2 % (0.0-2.0); EOSINOPHILS % (AUTO) 0 % (1.0-6.0); HEMATOCRIT 37.2 % (41-53); HEMOGLOBIN 11.5 g/dL (13.5-17.5); LYMPHOCYTES # (AUTO) 0.7 K/uL (1.0-4.8); LYMPHOCYTES % (AUTO) 5.7 % (22.0-44.0); MEAN CORPUSCULAR HEMOGLOBIN 31.3 pg (26.0-34.0); MEAN CORPUSCULAR HGB CONC 30.9 G/dL (31.0-37.0); MEAN CORPUSCULAR VOLUME 101 fL (80-100); MONOCYTES % (AUTO) 7.5 % (2.0-9.0); NEUTROPHILS # (AUTO) 11.1 K/uL (1.8-7.7); PLATELET COUNT (AUTO) 117 K/uL (150-450); RED BLOOD CELL COUNT(AUTO) 3.67 MIL/uL (4.50-5.90); RED CELL DISTRIBUTION WIDTH 18.9 % (11.5-14.5)
[2022-04-03 09:05] LABS: NEUTROPHILS % (AUTO) 86.6 % (40.0-70.0)
[2022-04-03 09:09] LABS: CALCIUM, TOTAL 8.3 mg/dL (8.8-10.5); CREATININE 2.92 mg/dL (0.60-1.30); POTASSIUM 5.4 mmol/L (3.5-5.1)
[2022-04-03] MEDS: FINASTERIDE 5 MG TABLET PO SCH (09:11)
[2022-04-03] MEDS: CHOLECALCIFEROL (VIT D3) 1,000 UNITS [25 MCG] TABLET PO SCH (09:11)
[2022-04-03] MEDS: PANTOPRAZOLE SODIUM 40 MG DR TABLET PO SCH (09:11)
[2022-04-03] MEDS: ALLOPURINOL 100 MG TABLET PO SCH (09:11)
[2022-04-03] MEDS: DOCUSATE SODIUM 100 MG CAPSULE PO SCH ×2 (09:11→21:33)
[2022-04-03] MEDS: NYSTATIN 30 GM CREAM TP SCH ×2 (11:51→21:34)
[2022-04-03 12:00] VITALS: BP 87/55
[2022-04-03 16:00] VITALS: BP 102/70
[2022-04-03] MEDS: DEXTROSE 5%-WATER 1,000 ML IV SCH (17:42)
[2022-04-03 17:56] LABS: GLUCOSE,POINT OF CARE 81 MG/DL (70-110)
[2022-04-03] MEDS: INSULIN GLARGINE,HUM.REC.ANLOG 100 UNITS/ML SQ SCH (21:00)
[2022-04-03] MEDS: TAMSULOSIN HCL 0.4 MG CAPSULE PO SCH (21:33)
[2022-04-03] MEDS: APIXABAN 2.5 MG TABLET PO SCH (21:33)
[2022-04-03] MEDS: PRAVASTATIN SODIUM 20 MG TABLET PO SCH (21:33)
[2022-04-03 21:46] LABS: GLUCOSE,POINT OF CARE 105 MG/DL (70-110)
[2022-04-03 21:56] LABS: GLUCOSE,POINT OF CARE 103 MG/DL (70-110)
[2022-04-04] MEDS: PIPERACILLIN SODIUM/TAZOBACTAM 2.25 GM in DEXTROSE 5%-WATER 50 ML IV SCH ×3 (02:25→18:44)
[2022-04-04 04:00] VITALS: BP 113/79
[2022-04-04] MEDS: DOPamine 400MG/D5W[STANDARD] 250 ML IV PRN ×2 (05:13→09:13)
[2022-04-04] MEDS: INSULIN LISPRO 100 UNITS/ML SQ PRN (05:19)
[2022-04-04 05:38] LABS: BASOPHILS % (AUTO) 0.3 % (0.0-2.0); EOSINOPHILS % (AUTO) 1.1 % (1.0-6.0); HEMATOCRIT 34.3 % (41-53); HEMOGLOBIN 11.1 g/dL (13.5-17.5); LYMPHOCYTES # (AUTO) 0.8 K/uL (1.0-4.8); LYMPHOCYTES % (AUTO) 7.8 % (22.0-44.0); MEAN CORPUSCULAR HEMOGLOBIN 31.7 pg (26.0-34.0); MEAN CORPUSCULAR HGB CONC 32.4 G/dL (31.0-37.0); MEAN CORPUSCULAR VOLUME 98 fL (80-100); MONOCYTES # (AUTO) 0.7 K/uL (0.1-1.0); MONOCYTES % (AUTO) 6.6 % (2.0-9.0); NEUTROPHILS # (AUTO) 8.3 K/uL (1.8-7.7); NEUTROPHILS % (AUTO) 84.2 % (40.0-70.0); PLATELET COUNT (AUTO) 114 K/uL (150-450); RED CELL DISTRIBUTION WIDTH 18.2 % (11.5-14.5)
[2022-04-04 05:42] LABS: CALCIUM, TOTAL 7.7 mg/dL (8.8-10.5); CREATININE 2.86 mg/dL (0.60-1.30); POTASSIUM 4.3 mmol/L (3.5-5.1)
[2022-04-04 06:16] LABS: GLUCOSE,POINT OF CARE 150 MG/DL (70-110)
[2022-04-04 08:00] VITALS: BP 100/53
[2022-04-04] MEDS: METOPROLOL TARTRATE 25 MG TABLET PO SCH ×2 (08:23→21:06)
[2022-04-04] MEDS: FINASTERIDE 5 MG TABLET PO SCH (09:11)
[2022-04-04] MEDS: ALLOPURINOL 100 MG TABLET PO SCH (09:11)
[2022-04-04] MEDS: DOCUSATE SODIUM 100 MG CAPSULE PO SCH ×2 (09:11→21:00)
[2022-04-04] MEDS: CHOLECALCIFEROL (VIT D3) 1,000 UNITS [25 MCG] TABLET PO SCH (09:11)
[2022-04-04] MEDS: PANTOPRAZOLE SODIUM 40 MG DR TABLET PO SCH (09:11)
[2022-04-04] MEDS: APIXABAN 2.5 MG TABLET PO SCH ×2 (09:11→21:06)
[2022-04-04] MEDS: NYSTATIN 30 GM CREAM TP SCH ×2 (09:12→21:07)
[2022-04-04] MEDS: PROPOFOL 1000 MG/ISO-OSM 100 ML IV PRN (09:14)
[2022-04-04] MEDS ORDERED: DEXMEDETOMIDINE HCL 400 MCG in SODIUM CHLORIDE 0.9% 96 ML IV PRN (09:45)
[2022-04-04] MEDS: LevETIRAcetam 500 MG in DEXTROSE 5%-WATER 100 ML IV SCH ×2 (10:21→22:18)
[2022-04-04] MEDS: DEXTROSE 5%-WATER 1,000 ML IV SCH (10:22)
[2022-04-04 12:00] VITALS: BP 103/53
[2022-04-04 16:00] VITALS: BP 97/54
[2022-04-04 19:41] LABS: GLUCOSE,POINT OF CARE 147 MG/DL (70-110)
[2022-04-04 19:41] LABS: GLUCOSE,POINT OF CARE 153 MG/DL (70-110)
[2022-04-04 20:00] VITALS: BP 98/47
[2022-04-04] MEDS: PRAVASTATIN SODIUM 20 MG TABLET PO SCH (20:06)
[2022-04-04] MEDS: TAMSULOSIN HCL 0.4 MG CAPSULE PO SCH (21:00)
[2022-04-04] MEDS: INSULIN GLARGINE,HUM.REC.ANLOG 100 UNITS/ML SQ SCH (22:19)
[2022-04-05] VITALS: BP 106/61
[2022-04-05] MEDS: PIPERACILLIN SODIUM/TAZOBACTAM 2.25 GM in DEXTROSE 5%-WATER 50 ML IV SCH ×3 (01:48→17:38)
[2022-04-05] MEDS: DOPamine 400MG/D5W[STANDARD] 250 ML IV PRN ×3 (01:58→23:35)
[2022-04-05 04:00] VITALS: BP 98/60
[2022-04-05 04:51] LABS: GLUCOSE,POINT OF CARE 138 MG/DL (70-110)
[2022-04-05 06:16] LABS: BASOPHILS % (AUTO) 0.2 % (0.0-2.0); HEMATOCRIT 32.9 % (41-53); HEMOGLOBIN 10.5 g/dL (13.5-17.5); LYMPHOCYTES # (AUTO) 0.7 K/uL (1.0-4.8); LYMPHOCYTES % (AUTO) 10.2 % (22.0-44.0); MEAN CORPUSCULAR HEMOGLOBIN 31.8 pg (26.0-34.0); MEAN CORPUSCULAR HGB CONC 31.9 G/dL (31.0-37.0); MEAN CORPUSCULAR VOLUME 100 fL (80-100); MONOCYTES # (AUTO) 0.5 K/uL (0.1-1.0); MONOCYTES % (AUTO) 7.4 % (2.0-9.0); NEUTROPHILS # (AUTO) 5.2 K/uL (1.8-7.7); NEUTROPHILS % (AUTO) 79.2 % (40.0-70.0); RED BLOOD CELL COUNT(AUTO) 3.31 MIL/uL (4.50-5.90); RED CELL DISTRIBUTION WIDTH 18.2 % (11.5-14.5)
[2022-04-05 06:29] LABS: ALBUMIN 1.6 g/dL (3.4-5.0); BILIRUBIN,TOTAL 2.1 mg/dL (0.1-1.0); CALCIUM, TOTAL 7.4 mg/dL (8.8-10.5); CREATININE 2.71 mg/dL (0.60-1.30); POTASSIUM 4.2 mmol/L (3.5-5.1); TOTAL PROTEIN, SERUM 5.9 g/dL (6.4-8.2)
[2022-04-05 06:47] LABS: PLATELET COUNT (AUTO) 101 K/uL (150-450)
[2022-04-05] MEDS: APIXABAN 2.5 MG TABLET PO SCH ×2 (08:17→20:52)
[2022-04-05] MEDS: DEXTROSE 5%-WATER 1,000 ML IV SCH (08:17)
[2022-04-05] MEDS: PANTOPRAZOLE SODIUM 40 MG DR TABLET PO SCH (08:18)
[2022-04-05] MEDS: METOPROLOL TARTRATE 25 MG TABLET PO SCH ×3 (08:18→20:52)
[2022-04-05] MEDS: ALLOPURINOL 100 MG TABLET PO SCH (08:18)
[2022-04-05] MEDS: FINASTERIDE 5 MG TABLET PO SCH (08:18)
[2022-04-05] MEDS: CHOLECALCIFEROL (VIT D3) 1,000 UNITS [25 MCG] TABLET PO SCH (08:18)
[2022-04-05] MEDS: DOCUSATE SODIUM 100 MG/10 ML LIQUID UDCUP NG SCH ×2 (08:19→20:52)
[2022-04-05] MEDS: NYSTATIN 30 GM CREAM TP SCH ×2 (08:19→20:55)
[2022-04-05 10:00] VITALS: BP 110/68
[2022-04-05] MEDS: LevETIRAcetam 500 MG in DEXTROSE 5%-WATER 100 ML IV SCH ×2 (11:23→20:53)
[2022-04-05 12:00] VITALS: BP 106/54
[2022-04-05 16:00] VITALS: BP 105/52
[2022-04-05] MEDS: ACETAMINOPHEN 325 MG TABLET PO PRN ×2 (16:16→23:31)
[2022-04-05 17:37] LABS: GLUCOSE,POINT OF CARE 140 MG/DL (70-110)
[2022-04-05 20:00] VITALS: BP 111/59
[2022-04-05] MEDS: TAMSULOSIN HCL 0.4 MG CAPSULE PO SCH (20:52)
[2022-04-05] MEDS: PRAVASTATIN SODIUM 20 MG TABLET PO SCH (20:52)
[2022-04-05] MEDS: INSULIN GLARGINE,HUM.REC.ANLOG 100 UNITS/ML SQ SCH (20:58)
[2022-04-05 22:26] LABS: GLUCOSE,POINT OF CARE 137 MG/DL (70-110)
[2022-04-05 22:26] LABS: GLUCOSE,POINT OF CARE 129 MG/DL (70-110)
[2022-04-06] VITALS: BP 108/61
[2022-04-06 01:36] LABS: GLUCOSE,POINT OF CARE 140 MG/DL (70-110)
[2022-04-06] MEDS: PIPERACILLIN SODIUM/TAZOBACTAM 2.25 GM in DEXTROSE 5%-WATER 50 ML IV SCH ×3 (02:52→17:59)
[2022-04-06 04:00] VITALS: BP 65/41
[2022-04-06 05:28] LABS: BASOPHILS % (AUTO) 0.3 % (0.0-2.0); EOSINOPHILS % (AUTO) 3.3 % (1.0-6.0); HEMOGLOBIN 10.7 g/dL (13.5-17.5); LYMPHOCYTES # (AUTO) 0.7 K/uL (1.0-4.8); LYMPHOCYTES % (AUTO) 11.9 % (22.0-44.0); MEAN CORPUSCULAR HEMOGLOBIN 31.4 pg (26.0-34.0); MEAN CORPUSCULAR HGB CONC 32.3 G/dL (31.0-37.0); MEAN CORPUSCULAR VOLUME 97 fL (80-100); MONOCYTES # (AUTO) 0.6 K/uL (0.1-1.0); NEUTROPHILS # (AUTO) 4.2 K/uL (1.8-7.7); NEUTROPHILS % (AUTO) 74.5 % (40.0-70.0); PLATELET COUNT (AUTO) 97 K/uL (150-450); RED BLOOD CELL COUNT(AUTO) 3.39 MIL/uL (4.50-5.90); RED CELL DISTRIBUTION WIDTH 18.7 % (11.5-14.5)
[2022-04-06 05:42] LABS: ALBUMIN 1.6 g/dL (3.4-5.0); BILIRUBIN,TOTAL 2.4 mg/dL (0.1-1.0); CALCIUM, TOTAL 7.6 mg/dL (8.8-10.5); CREATININE 2.39 mg/dL (0.60-1.30); TOTAL PROTEIN, SERUM 6.4 g/dL (6.4-8.2)
[2022-04-06 08:00] VITALS: BP 114/61
[2022-04-06] MEDS: DOPamine 400MG/D5W[STANDARD] 250 ML IV PRN (08:50)
[2022-04-06] MEDS: DOCUSATE SODIUM 100 MG/10 ML LIQUID UDCUP NG SCH ×2 (08:50→20:02)
[2022-04-06] MEDS: CHOLECALCIFEROL (VIT D3) 1,000 UNITS [25 MCG] TABLET PO SCH (08:52)
[2022-04-06] MEDS: METOPROLOL TARTRATE 25 MG TABLET PO SCH ×2 (08:52→19:51)
[2022-04-06] MEDS: ALLOPURINOL 100 MG TABLET PO SCH (08:53)
[2022-04-06] MEDS: FINASTERIDE 5 MG TABLET PO SCH (08:53)
[2022-04-06] MEDS: PANTOPRAZOLE SODIUM 40 MG DR TABLET PO SCH (08:54)
[2022-04-06] MEDS: APIXABAN 2.5 MG TABLET PO SCH ×2 (08:55→20:02)
[2022-04-06] MEDS: NYSTATIN 30 GM CREAM TP SCH ×2 (08:55→20:02)
[2022-04-06] MEDS: LevETIRAcetam 500 MG in DEXTROSE 5%-WATER 100 ML IV SCH ×2 (10:17→22:38)
[2022-04-06 11:41] LABS: GLUCOSE,POINT OF CARE 139 MG/DL (70-110)
[2022-04-06 12:00] VITALS: BP 117/63
[2022-04-06 12:40] LABS: GLUCOSE,POINT OF CARE 140 MG/DL (70-110)
[2022-04-06] MEDS: ACETAMINOPHEN 325 MG TABLET PO PRN (13:16)
[2022-04-06] MEDS: ALBUMIN HUMAN 25%-25GM/100ML 100 ML IV SCH ×2 (14:08→22:37)
[2022-04-06 16:00] VITALS: BP 123/66
[2022-04-06 19:36] LABS: GLUCOSE,POINT OF CARE 122 MG/DL (70-110)
[2022-04-06 20:00] VITALS: BP 102/50
[2022-04-06] MEDS: TAMSULOSIN HCL 0.4 MG CAPSULE PO SCH (20:01)
[2022-04-06] MEDS: PRAVASTATIN SODIUM 20 MG TABLET PO SCH (20:01)
[2022-04-06] MEDS: INSULIN GLARGINE,HUM.REC.ANLOG 100 UNITS/ML SQ SCH (20:08)
[2022-04-07] VITALS: BP 98/48
[2022-04-07 00:21] LABS: GLUCOSE,POINT OF CARE 129 MG/DL (70-110)
[2022-04-07] MEDS: DOPamine 400MG/D5W[STANDARD] 250 ML IV PRN (01:21)
[2022-04-07] MEDS: PIPERACILLIN SODIUM/TAZOBACTAM 2.25 GM in DEXTROSE 5%-WATER 50 ML IV SCH ×3 (02:30→17:25)
[2022-04-07 04:00] VITALS: BP 116/53
[2022-04-07 05:29] LABS: BASOPHILS % (AUTO) 0.3 % (0.0-2.0); EOSINOPHILS % (AUTO) 3.6 % (1.0-6.0); HEMATOCRIT 29.1 % (41-53); HEMOGLOBIN 9.5 g/dL (13.5-17.5); LYMPHOCYTES # (AUTO) 0.6 K/uL (1.0-4.8); LYMPHOCYTES % (AUTO) 10.9 % (22.0-44.0); MEAN CORPUSCULAR HEMOGLOBIN 31.6 pg (26.0-34.0); MEAN CORPUSCULAR HGB CONC 32.5 G/dL (31.0-37.0); MEAN CORPUSCULAR VOLUME 97 fL (80-100); MONOCYTES # (AUTO) 0.4 K/uL (0.1-1.0); MONOCYTES % (AUTO) 7.8 % (2.0-9.0); NEUTROPHILS # (AUTO) 4.3 K/uL (1.8-7.7); NEUTROPHILS % (AUTO) 77.4 % (40.0-70.0); PLATELET COUNT (AUTO) 85 K/uL (150-450); RED BLOOD CELL COUNT(AUTO) 2.99 MIL/uL (4.50-5.90); RED CELL DISTRIBUTION WIDTH 18.5 % (11.5-14.5)
[2022-04-07 05:44] LABS: ALBUMIN 2.2 g/dL (3.4-5.0); BILIRUBIN,TOTAL 2.7 mg/dL (0.1-1.0); CALCIUM, TOTAL 7.7 mg/dL (8.8-10.5); CREATININE 2.1 mg/dL (0.60-1.30); MAGNESIUM 2.5 mg/dL (1.80-2.40); POTASSIUM 3.9 mmol/L (3.5-5.1); TOTAL PROTEIN, SERUM 6.2 g/dL (6.4-8.2)
[2022-04-07 05:56] LABS: GLUCOSE,POINT OF CARE 137 MG/DL (70-110)
[2022-04-07] MEDS: ALBUMIN HUMAN 25%-25GM/100ML 100 ML IV SCH ×3 (06:24→22:39)
[2022-04-07 08:00] VITALS: BP 120/56
[2022-04-07 08:41] LABS: GLUCOSE,POINT OF CARE 132 MG/DL (70-110)
[2022-04-07] MEDS: METOPROLOL TARTRATE 25 MG TABLET PO SCH ×2 (09:00→20:34)
[2022-04-07] MEDS: CHOLECALCIFEROL (VIT D3) 1,000 UNITS [25 MCG] TABLET PO SCH (09:04)
[2022-04-07] MEDS: PANTOPRAZOLE SODIUM 40 MG DR TABLET PO SCH (09:04)
[2022-04-07] MEDS: LevETIRAcetam 500 MG in DEXTROSE 5%-WATER 100 ML IV SCH ×2 (09:04→22:40)
[2022-04-07] MEDS: FINASTERIDE 5 MG TABLET PO SCH (09:04)
[2022-04-07] MEDS: APIXABAN 2.5 MG TABLET PO SCH ×2 (09:05→20:35)
[2022-04-07] MEDS: ALLOPURINOL 100 MG TABLET PO SCH (09:05)
[2022-04-07] MEDS: DOCUSATE SODIUM 100 MG/10 ML LIQUID UDCUP NG SCH ×2 (09:05→20:34)
[2022-04-07] MEDS: NYSTATIN 30 GM CREAM TP SCH ×2 (09:05→20:49)
[2022-04-07 12:00] VITALS: BP 111/76
[2022-04-07] MEDS: MORPHINE SULFATE 2 MG/ML SYRINGE IVP PRN (15:23)
[2022-04-07] MEDS: ACETAMINOPHEN 325 MG TABLET PO PRN ×2 (15:23→20:48)
[2022-04-07 16:00] VITALS: BP 114/52
[2022-04-07 17:46] LABS: GLUCOSE,POINT OF CARE 123 MG/DL (70-110)
[2022-04-07 18:47] LABS: GLUCOSE,POINT OF CARE 127 MG/DL (70-110)
[2022-04-07 20:00] VITALS: BP 109/55
[2022-04-07] MEDS: TAMSULOSIN HCL 0.4 MG CAPSULE PO SCH (20:35)
[2022-04-07] MEDS: PRAVASTATIN SODIUM 20 MG TABLET PO SCH (20:35)
[2022-04-07] MEDS: INSULIN GLARGINE,HUM.REC.ANLOG 100 UNITS/ML SQ SCH (20:41)
[2022-04-07 22:56] LABS: GLUCOSE,POINT OF CARE 127 MG/DL (70-110)
[2022-04-08] VITALS: BP 117/52
[2022-04-08] MEDS: PIPERACILLIN SODIUM/TAZOBACTAM 2.25 GM in DEXTROSE 5%-WATER 50 ML IV SCH ×4 (01:22→20:08)
[2022-04-08 03:06] LABS: GLUCOSE,POINT OF CARE 137 MG/DL (70-110)
[2022-04-08 04:00] VITALS: BP 105/55
[2022-04-08] MEDS: ALBUMIN HUMAN 25%-25GM/100ML 100 ML IV SCH ×3 (05:40→22:32)
[2022-04-08 05:48] LABS: BASOPHILS % (AUTO) 0.5 % (0.0-2.0); EOSINOPHILS % (AUTO) 5.3 % (1.0-6.0); HEMATOCRIT 26.9 % (41-53); HEMOGLOBIN 8.8 g/dL (13.5-17.5); LYMPHOCYTES # (AUTO) 0.6 K/uL (1.0-4.8); MEAN CORPUSCULAR HEMOGLOBIN 32.2 pg (26.0-34.0); MEAN CORPUSCULAR HGB CONC 32.7 G/dL (31.0-37.0); MEAN CORPUSCULAR VOLUME 99 fL (80-100); MONOCYTES # (AUTO) 0.3 K/uL (0.1-1.0); MONOCYTES % (AUTO) 7.4 % (2.0-9.0); NEUTROPHILS # (AUTO) 3.5 K/uL (1.8-7.7); NEUTROPHILS % (AUTO) 74.8 % (40.0-70.0); PLATELET COUNT (AUTO) 86 K/uL (150-450); RED BLOOD CELL COUNT(AUTO) 2.73 MIL/uL (4.50-5.90); RED CELL DISTRIBUTION WIDTH 19.3 % (11.5-14.5)
[2022-04-08 06:01] LABS: ALBUMIN 2.7 g/dL (3.4-5.0); BILIRUBIN,TOTAL 2.8 mg/dL (0.1-1.0); CALCIUM, TOTAL 7.9 mg/dL (8.8-10.5); CREATININE 2.04 mg/dL (0.60-1.30); POTASSIUM 3.9 mmol/L (3.5-5.1); TOTAL PROTEIN, SERUM 6.5 g/dL (6.4-8.2)
[2022-04-08 08:00] VITALS: BP 113/57
[2022-04-08] MEDS: PANTOPRAZOLE SODIUM 40 MG DR TABLET PO SCH (08:02)
[2022-04-08] MEDS: METOPROLOL TARTRATE 25 MG TABLET PO SCH ×2 (08:03→20:03)
[2022-04-08] MEDS: FINASTERIDE 5 MG TABLET PO SCH (08:03)
[2022-04-08] MEDS: DOCUSATE SODIUM 100 MG/10 ML LIQUID UDCUP NG SCH ×2 (08:03→20:07)
[2022-04-08] MEDS: CHOLECALCIFEROL (VIT D3) 1,000 UNITS [25 MCG] TABLET PO SCH (08:03)
[2022-04-08] MEDS: APIXABAN 2.5 MG TABLET PO SCH ×2 (08:03→20:07)
[2022-04-08] MEDS: ALLOPURINOL 100 MG TABLET PO SCH (08:06)
[2022-04-08] MEDS: NYSTATIN 30 GM CREAM TP SCH ×2 (08:06→20:07)
[2022-04-08 10:01] LABS: GLUCOSE,POINT OF CARE 131 MG/DL (70-110)
[2022-04-08] MEDS: LevETIRAcetam 500 MG in DEXTROSE 5%-WATER 100 ML IV SCH ×2 (10:37→22:32)
[2022-04-08 12:00] VITALS: BP 116/54
[2022-04-08] MEDS: MORPHINE SULFATE 2 MG/ML SYRINGE IVP PRN ×2 (12:30→17:32)
[2022-04-08] MEDS: INSULIN LISPRO 100 UNITS/ML SQ PRN (14:37)
[2022-04-08 16:00] VITALS: BP 119/58
[2022-04-08] MEDS ORDERED: SODIUM CHLORIDE 0.9% 250 ML IV ONE (17:30)
[2022-04-08] MEDS: ACETAMINOPHEN 325 MG TABLET PO PRN ×2 (17:32→22:43)
[2022-04-08] MEDS: DOPamine 400MG/D5W[STANDARD] 250 ML IV PRN (17:32)
[2022-04-08 19:30] LABS: GLUCOSE,POINT OF CARE 151 MG/DL (70-110)
[2022-04-08 19:30] LABS: GLUCOSE,POINT OF CARE 111 MG/DL (70-110)
[2022-04-08 20:00] VITALS: BP 117/53
[2022-04-08] MEDS: TAMSULOSIN HCL 0.4 MG CAPSULE PO SCH (20:07)
[2022-04-08] MEDS: PRAVASTATIN SODIUM 20 MG TABLET PO SCH (20:07)
[2022-04-08] MEDS: INSULIN GLARGINE,HUM.REC.ANLOG 100 UNITS/ML SQ SCH (20:13)
[2022-04-08 20:40] LABS: GLUCOSE,POINT OF CARE 112 MG/DL (70-110)
[2022-04-09] VITALS (7 sets, daily range): BP systolic 99–121; BP diastolic 49–61
[2022-04-09 02:31] LABS: GLUCOSE,POINT OF CARE 135 MG/DL (70-110)
[2022-04-09] MEDS: PIPERACILLIN SODIUM/TAZOBACTAM 2.25 GM in DEXTROSE 5%-WATER 50 ML IV SCH ×4 (02:31→20:28)
[2022-04-09] MEDS: MORPHINE SULFATE 2 MG/ML SYRINGE IVP PRN (03:20)
[2022-04-09] MEDS ORDERED: SODIUM CHLORIDE 0.9% 250 ML IV ONE (04:54)
[2022-04-09] MEDS: ALBUMIN HUMAN 25%-25GM/100ML 100 ML IV SCH ×3 (05:26→21:22)
[2022-04-09 06:06] LABS: GLUCOSE,POINT OF CARE 142 MG/DL (70-110)
[2022-04-09 06:17] LABS: BASOPHILS % (AUTO) 0.4 % (0.0-2.0); EOSINOPHILS % (AUTO) 5.3 % (1.0-6.0); HEMATOCRIT 24.8 % (41-53); HEMOGLOBIN 8.1 g/dL (13.5-17.5); LYMPHOCYTES # (AUTO) 0.7 K/uL (1.0-4.8); LYMPHOCYTES % (AUTO) 16.2 % (22.0-44.0); MEAN CORPUSCULAR HEMOGLOBIN 32.1 pg (26.0-34.0); MEAN CORPUSCULAR HGB CONC 32.8 G/dL (31.0-37.0); MEAN CORPUSCULAR VOLUME 98 fL (80-100); MONOCYTES # (AUTO) 0.3 K/uL (0.1-1.0); MONOCYTES % (AUTO) 8.4 % (2.0-9.0); NEUTROPHILS # (AUTO) 2.9 K/uL (1.8-7.7); NEUTROPHILS % (AUTO) 69.7 % (40.0-70.0); PLATELET COUNT (AUTO) 78 K/uL (150-450); RED BLOOD CELL COUNT(AUTO) 2.54 MIL/uL (4.50-5.90); RED CELL DISTRIBUTION WIDTH 19.2 % (11.5-14.5)
[2022-04-09 06:29] LABS: ALBUMIN 3.3 g/dL (3.4-5.0); BILIRUBIN,TOTAL 3.2 mg/dL (0.1-1.0); CALCIUM, TOTAL 8.3 mg/dL (8.8-10.5); CREATININE 1.96 mg/dL (0.60-1.30); POTASSIUM 3.6 mmol/L (3.5-5.1); TOTAL PROTEIN, SERUM 6.7 g/dL (6.4-8.2)
[2022-04-09] MEDS: INSULIN LISPRO 100 UNITS/ML SQ PRN (06:37)
[2022-04-09] MEDS: FINASTERIDE 5 MG TABLET PO SCH ×2 (09:00→09:03)
[2022-04-09] MEDS: METOPROLOL TARTRATE 25 MG TABLET PO SCH ×2 (09:00→20:31)
[2022-04-09] MEDS: DOCUSATE SODIUM 100 MG/10 ML LIQUID UDCUP NG SCH ×2 (09:02→20:28)
[2022-04-09] MEDS: CHOLECALCIFEROL (VIT D3) 1,000 UNITS [25 MCG] TABLET PO SCH (09:02)
[2022-04-09] MEDS: PANTOPRAZOLE SODIUM 40 MG DR TABLET PO SCH (09:02)
[2022-04-09] MEDS: ALLOPURINOL 100 MG TABLET PO SCH (09:03)
[2022-04-09] MEDS: APIXABAN 2.5 MG TABLET PO SCH ×2 (09:03→21:21)
[2022-04-09] MEDS: NYSTATIN 30 GM CREAM TP SCH ×2 (09:05→20:30)
[2022-04-09] MEDS ORDERED: FUROSEMIDE 20 MG/2 ML VIAL IVP ONE (09:45)
[2022-04-09] MEDS: LevETIRAcetam 500 MG in DEXTROSE 5%-WATER 100 ML IV SCH ×2 (10:50→21:22)
[2022-04-09 16:11] LABS: GLUCOSE,POINT OF CARE 129 MG/DL (70-110)
[2022-04-09 16:11] LABS: GLUCOSE,POINT OF CARE 144 MG/DL (70-110)
[2022-04-09 19:35] LABS: GLUCOSE,POINT OF CARE 132 MG/DL (70-110)
[2022-04-09] MEDS: TAMSULOSIN HCL 0.4 MG CAPSULE PO SCH (20:28)
[2022-04-09] MEDS: PRAVASTATIN SODIUM 20 MG TABLET PO SCH (20:29)
[2022-04-09] MEDS: INSULIN GLARGINE,HUM.REC.ANLOG 100 UNITS/ML SQ SCH (20:29)
[2022-04-09] MEDS: ACETAMINOPHEN 325 MG TABLET PO PRN (20:30)
[2022-04-09] MEDS: PEG 400/HYPROMELLOSE/GLYCERIN 15 ML OPHTHALMIC SOLUTION OU PRN (21:21)
[2022-04-10] VITALS: BP 99/53
[2022-04-10 00:36] LABS: GLUCOSE,POINT OF CARE 140 MG/DL (70-110)
[2022-04-10 04:00] VITALS: BP 106/59
[2022-04-10] MEDS: PIPERACILLIN SODIUM/TAZOBACTAM 2.25 GM in DEXTROSE 5%-WATER 50 ML IV SCH ×4 (04:55→21:26)
[2022-04-10] MEDS: DOPamine 400MG/D5W[STANDARD] 250 ML IV PRN (04:56)
[2022-04-10 05:24] LABS: BASOPHILS % (AUTO) 0.4 % (0.0-2.0); EOSINOPHILS % (AUTO) 3.1 % (1.0-6.0); HEMATOCRIT 23.7 % (41-53); HEMOGLOBIN 7.6 g/dL (13.5-17.5); LYMPHOCYTES # (AUTO) 0.7 K/uL (1.0-4.8); LYMPHOCYTES % (AUTO) 15.6 % (22.0-44.0); MEAN CORPUSCULAR HEMOGLOBIN 31.9 pg (26.0-34.0); MEAN CORPUSCULAR HGB CONC 32.1 G/dL (31.0-37.0); MEAN CORPUSCULAR VOLUME 99 fL (80-100); MONOCYTES # (AUTO) 0.4 K/uL (0.1-1.0); MONOCYTES % (AUTO) 7.7 % (2.0-9.0); NEUTROPHILS # (AUTO) 3.4 K/uL (1.8-7.7); NEUTROPHILS % (AUTO) 73.2 % (40.0-70.0); PLATELET COUNT (AUTO) 92 K/uL (150-450); RED BLOOD CELL COUNT(AUTO) 2.39 MIL/uL (4.50-5.90); RED CELL DISTRIBUTION WIDTH 19.6 % (11.5-14.5)
[2022-04-10 05:43] LABS: ALBUMIN 3.3 g/dL (3.4-5.0); BILIRUBIN,TOTAL 3.9 mg/dL (0.1-1.0); CALCIUM, TOTAL 8.4 mg/dL (8.8-10.5); CREATININE 2.04 mg/dL (0.60-1.30); POTASSIUM 3.7 mmol/L (3.5-5.1); TOTAL PROTEIN, SERUM 6.8 g/dL (6.4-8.2)
[2022-04-10] MEDS: ALBUMIN HUMAN 25%-25GM/100ML 100 ML IV SCH ×3 (05:43→21:26)
[2022-04-10] MEDS: INSULIN LISPRO 100 UNITS/ML SQ PRN (06:02)
[2022-04-10 07:30] LABS: GLUCOSE,POINT OF CARE 154 MG/DL (70-110)
[2022-04-10 08:00] VITALS: BP 112/60
[2022-04-10] MEDS: PANTOPRAZOLE SODIUM 40 MG DR TABLET PO SCH (08:30)
[2022-04-10] MEDS: FINASTERIDE 5 MG TABLET PO SCH (08:30)
[2022-04-10] MEDS: METOPROLOL TARTRATE 25 MG TABLET PO SCH (08:30)
[2022-04-10] MEDS: APIXABAN 2.5 MG TABLET PO SCH ×2 (08:30→21:25)
[2022-04-10] MEDS: DOCUSATE SODIUM 100 MG/10 ML LIQUID UDCUP NG SCH ×3 (08:30→21:25)
[2022-04-10] MEDS: CHOLECALCIFEROL (VIT D3) 1,000 UNITS [25 MCG] TABLET PO SCH (08:31)
[2022-04-10] MEDS: NYSTATIN 30 GM CREAM TP SCH ×2 (08:31→21:25)
[2022-04-10] MEDS: ALLOPURINOL 100 MG TABLET PO SCH (08:31)
[2022-04-10] MEDS: LevETIRAcetam 500 MG in DEXTROSE 5%-WATER 100 ML IV SCH ×2 (11:04→21:26)
[2022-04-10] MEDS: EPOETIN ALFA 10,000 UNITS/ML VIAL SQ SCH (11:19)
[2022-04-10 12:00] VITALS: BP 101/54
[2022-04-10 16:00] VITALS: BP 105/48
[2022-04-10 16:06] LABS: GLUCOSE,POINT OF CARE 146 MG/DL (70-110)
[2022-04-10 20:00] VITALS: BP 93/47
[2022-04-10] MEDS: TAMSULOSIN HCL 0.4 MG CAPSULE PO SCH (21:25)
[2022-04-10] MEDS: PRAVASTATIN SODIUM 20 MG TABLET PO SCH (21:25)
[2022-04-10] MEDS: INSULIN GLARGINE,HUM.REC.ANLOG 100 UNITS/ML SQ SCH (21:29)
[2022-04-10] MEDS: PEG 400/HYPROMELLOSE/GLYCERIN 15 ML OPHTHALMIC SOLUTION OU PRN (21:29)
[2022-04-10 21:32] LABS: GLUCOSE,POINT OF CARE 140 MG/DL (70-110)
[2022-04-10 22:26] LABS: GLUCOSE,POINT OF CARE 143 MG/DL (70-110)
[2022-04-11] VITALS: BP 126/67
[2022-04-11] MEDS: PIPERACILLIN SODIUM/TAZOBACTAM 2.25 GM in DEXTROSE 5%-WATER 50 ML IV SCH ×4 (02:32→21:00)
[2022-04-11 04:00] VITALS: BP 128/61
[2022-04-11] MEDS ORDERED: SODIUM CHLORIDE 0.9% 250 ML IV ONE (04:08)
[2022-04-11] MEDS: MORPHINE SULFATE 2 MG/ML SYRINGE IVP PRN (04:10)
[2022-04-11 05:41] LABS: GLUCOSE,POINT OF CARE 162 MG/DL (70-110)
[2022-04-11] MEDS: INSULIN LISPRO 100 UNITS/ML SQ PRN ×2 (05:47→13:02)
[2022-04-11] MEDS: ALBUMIN HUMAN 25%-25GM/100ML 100 ML IV SCH ×3 (05:48→22:14)
[2022-04-11] MEDS: ACETAMINOPHEN 325 MG TABLET PO PRN (05:49)
[2022-04-11 05:51] LABS: CALCIUM, TOTAL 8.5 mg/dL (8.8-10.5); CREATININE 2.26 mg/dL (0.60-1.30); MAGNESIUM 2.7 mg/dL (1.80-2.40); PHOSPHORUS 4.7 mg/dL (2.5-4.9); POTASSIUM 3.9 mmol/L (3.5-5.1)
[2022-04-11 08:00] VITALS: BP 100/48
[2022-04-11] MEDS: PANTOPRAZOLE SODIUM 40 MG DR TABLET PO SCH (08:14)
[2022-04-11] MEDS: CHOLECALCIFEROL (VIT D3) 1,000 UNITS [25 MCG] TABLET PO SCH (08:14)
[2022-04-11] MEDS: APIXABAN 2.5 MG TABLET PO SCH ×2 (08:14→21:00)
[2022-04-11] MEDS: FINASTERIDE 5 MG TABLET PO SCH (08:15)
[2022-04-11] MEDS: NYSTATIN 30 GM CREAM TP SCH ×2 (08:16→21:03)
[2022-04-11] MEDS: LevETIRAcetam 500 MG in DEXTROSE 5%-WATER 100 ML IV SCH ×2 (10:26→22:14)
[2022-04-11 12:00] VITALS: BP 94/54
[2022-04-11] MEDS ORDERED: BUMETANIDE 0.25 MG/ML 4 ML VIAL IVP ONE (15:00)
[2022-04-11 16:00] VITALS: BP 111/65
[2022-04-11 16:26] LABS: GLUCOSE,POINT OF CARE 144 MG/DL (70-110)
[2022-04-11 19:56] LABS: GLUCOSE,POINT OF CARE 126 MG/DL (70-110)
[2022-04-11 20:00] VITALS: BP 108/58
[2022-04-11 20:06] LABS: GLUCOSE,POINT OF CARE 122 MG/DL (70-110)
[2022-04-11] MEDS: DOCUSATE SODIUM 100 MG/10 ML LIQUID UDCUP NG SCH (21:00)
[2022-04-11] MEDS: PRAVASTATIN SODIUM 20 MG TABLET PO SCH (21:00)
[2022-04-11] MEDS: TAMSULOSIN HCL 0.4 MG CAPSULE PO SCH (21:00)
[2022-04-11] MEDS: INSULIN GLARGINE,HUM.REC.ANLOG 100 UNITS/ML SQ SCH (21:02)
[2022-04-12] VITALS: BP 113/54
[2022-04-12] MEDS: INSULIN LISPRO 100 UNITS/ML SQ PRN ×2 (00:02→12:13)
[2022-04-12] MEDS: PIPERACILLIN SODIUM/TAZOBACTAM 2.25 GM in DEXTROSE 5%-WATER 50 ML IV SCH ×4 (02:41→20:45)
[2022-04-12] MEDS ORDERED: SODIUM CHLORIDE 0.9% 250 ML IV ONE (03:00)
[2022-04-12 03:50] LABS: GLUCOSE,POINT OF CARE 146 MG/DL (70-110)
[2022-04-12 04:00] VITALS: BP 126/69
[2022-04-12 05:21] LABS: GLUCOSE,POINT OF CARE 133 MG/DL (70-110)
[2022-04-12] MEDS: ALBUMIN HUMAN 25%-25GM/100ML 100 ML IV SCH ×3 (05:32→22:05)
[2022-04-12 05:40] LABS: CALCIUM, TOTAL 8.7 mg/dL (8.8-10.5); CREATININE 2.83 mg/dL (0.60-1.30); MAGNESIUM 2.7 mg/dL (1.80-2.40); PHOSPHORUS 5.3 mg/dL (2.5-4.9); POTASSIUM 3.7 mmol/L (3.5-5.1)
[2022-04-12 08:00] VITALS: BP 106/55
[2022-04-12] MEDS: DOCUSATE SODIUM 100 MG/10 ML LIQUID UDCUP NG SCH ×2 (08:34→20:45)
[2022-04-12] MEDS: LevETIRAcetam 500 MG in DEXTROSE 5%-WATER 100 ML IV SCH ×2 (08:51→21:52)
[2022-04-12] MEDS: FINASTERIDE 5 MG TABLET PO SCH (08:52)
[2022-04-12] MEDS: PANTOPRAZOLE SODIUM 40 MG DR TABLET PO SCH (08:52)
[2022-04-12] MEDS: APIXABAN 2.5 MG TABLET PO SCH ×2 (08:52→20:46)
[2022-04-12] MEDS: CHOLECALCIFEROL (VIT D3) 1,000 UNITS [25 MCG] TABLET PO SCH (08:52)
[2022-04-12] MEDS: NYSTATIN 30 GM CREAM TP SCH ×2 (08:55→21:53)
[2022-04-12 12:00] VITALS: BP 109/70
[2022-04-12 16:00] VITALS: BP 114/61
[2022-04-12 18:11] LABS: GLUCOSE,POINT OF CARE 141 MG/DL (70-110)
[2022-04-12 20:00] VITALS: BP 111/57
[2022-04-12] MEDS: ACETAMINOPHEN 325 MG TABLET PO PRN (20:46)
[2022-04-12] MEDS: TAMSULOSIN HCL 0.4 MG CAPSULE PO SCH (20:47)
[2022-04-12] MEDS: PRAVASTATIN SODIUM 20 MG TABLET PO SCH (20:47)
[2022-04-12 21:36] LABS: GLUCOSE,POINT OF CARE 173 MG/DL (70-110)
[2022-04-12] MEDS: INSULIN GLARGINE,HUM.REC.ANLOG 100 UNITS/ML SQ SCH (22:02)
[2022-04-13] VITALS: BP 109/59
[2022-04-13 00:01] LABS: GLUCOSE,POINT OF CARE 125 MG/DL (70-110)
[2022-04-13] MEDS: PIPERACILLIN SODIUM/TAZOBACTAM 2.25 GM in DEXTROSE 5%-WATER 50 ML IV SCH ×3 (03:17→17:49)
[2022-04-13 04:00] VITALS: BP 99/50
[2022-04-13 04:26] LABS: GLUCOSE,POINT OF CARE 139 MG/DL (70-110)
[2022-04-13] MEDS: ALBUMIN HUMAN 25%-25GM/100ML 100 ML IV SCH ×3 (05:19→22:09)
[2022-04-13] MEDS: INSULIN LISPRO 100 UNITS/ML SQ PRN ×3 (05:21→17:50)
[2022-04-13 05:28] LABS: CALCIUM, TOTAL 8.7 mg/dL (8.8-10.5); CREATININE 3.3 mg/dL (0.60-1.30); MAGNESIUM 2.8 mg/dL (1.80-2.40); POTASSIUM 3.7 mmol/L (3.5-5.1)
[2022-04-13 06:01] LABS: GLUCOSE,POINT OF CARE 142 MG/DL (70-110)
[2022-04-13] MEDS: DOCUSATE SODIUM 100 MG/10 ML LIQUID UDCUP NG SCH ×2 (07:56→21:00)
[2022-04-13 08:00] VITALS: BP 102/67
[2022-04-13] MEDS: PANTOPRAZOLE SODIUM 40 MG DR TABLET PO SCH (08:04)
[2022-04-13] MEDS: CHOLECALCIFEROL (VIT D3) 1,000 UNITS [25 MCG] TABLET PO SCH (08:04)
[2022-04-13] MEDS: FINASTERIDE 5 MG TABLET PO SCH (08:05)
[2022-04-13] MEDS: LevETIRAcetam 500 MG in DEXTROSE 5%-WATER 100 ML IV SCH ×2 (08:05→22:10)
[2022-04-13] MEDS: APIXABAN 2.5 MG TABLET PO SCH ×2 (08:05→21:35)
[2022-04-13] MEDS: NYSTATIN 30 GM CREAM TP SCH ×2 (08:07→21:50)
[2022-04-13 09:17] LABS: APPEARANCE,URINE HAZY (CLEAR); BILIRUBIN,URINE NEGATIVE (NEGATIVE); GLUCOSE, URINE (UA) NEGATIVE (NEGATIVE); KETONES,URINE TRACE mg/dL (NEGATIVE); LEUKOCYTE ESTERASE ,URINE MODERATE (NEGATIVE); NITRATE,URINE NEGATIVE (NEGATIVE); OCCULT BLOOD,URINE MODERATE (NEGATIVE); PROTEIN,URINE 30-70 mg/dL (NEGATIVE); SPECIFIC GRAVITIY, URINE 1.018 (1.003-1.030); UROBILINOGEN,URINE <=1.0 mg/dL (<=1.0)
[2022-04-13 09:30] LABS: BACTERIA,URINE Few /HPF (None Seen)
[2022-04-13 12:00] VITALS: BP 110/63
[2022-04-13 16:00] VITALS: BP 123/62
[2022-04-13 18:31] LABS: GLUCOSE,POINT OF CARE 169 MG/DL (70-110)
[2022-04-13 18:32] LABS: GLUCOSE,POINT OF CARE 156 MG/DL (70-110)
[2022-04-13 20:00] VITALS: BP 113/63
[2022-04-13] MEDS: TAMSULOSIN HCL 0.4 MG CAPSULE PO SCH (21:35)
[2022-04-13] MEDS: PRAVASTATIN SODIUM 20 MG TABLET PO SCH (21:36)
[2022-04-13] MEDS: INSULIN GLARGINE,HUM.REC.ANLOG 100 UNITS/ML SQ SCH (21:40)
[2022-04-14] VITALS: BP 101/55
[2022-04-14 00:02] LABS: GLUCOSE,POINT OF CARE 154 MG/DL (70-110)
[2022-04-14] MEDS: PIPERACILLIN SODIUM/TAZOBACTAM 2.25 GM in DEXTROSE 5%-WATER 50 ML IV SCH ×3 (00:13→17:18)
[2022-04-14] MEDS: INSULIN LISPRO 100 UNITS/ML SQ PRN ×4 (00:15→18:17)
[2022-04-14 04:00] VITALS: BP 111/54
[2022-04-14 04:31] LABS: GLUCOSE,POINT OF CARE 176 MG/DL (70-110)
[2022-04-14] MEDS: ALBUMIN HUMAN 25%-25GM/100ML 100 ML IV SCH ×3 (06:09→21:41)
[2022-04-14 07:46] LABS: GLUCOSE,POINT OF CARE 150 MG/DL (70-110)
[2022-04-14 08:00] VITALS: BP 108/60
[2022-04-14] MEDS: DOCUSATE SODIUM 100 MG/10 ML LIQUID UDCUP NG SCH ×2 (08:58→21:00)
[2022-04-14] MEDS: CHOLECALCIFEROL (VIT D3) 1,000 UNITS [25 MCG] TABLET PO SCH (08:58)
[2022-04-14] MEDS: APIXABAN 2.5 MG TABLET PO SCH ×2 (08:58→21:38)
[2022-04-14] MEDS: FINASTERIDE 5 MG TABLET PO SCH (08:58)
[2022-04-14] MEDS: PANTOPRAZOLE SODIUM 40 MG DR TABLET PO SCH (08:58)
[2022-04-14] MEDS: NYSTATIN 30 GM CREAM TP SCH ×2 (08:59→21:38)
[2022-04-14] MEDS: LevETIRAcetam 500 MG in DEXTROSE 5%-WATER 100 ML IV SCH ×2 (10:19→21:41)
[2022-04-14 12:00] VITALS: BP 105/51
[2022-04-14 13:11] LABS: GLUCOSE,POINT OF CARE 190 MG/DL (70-110)
[2022-04-14 16:00] VITALS: BP 109/62
[2022-04-14 19:20] LABS: GLUCOSE,POINT OF CARE 181 MG/DL (70-110)
[2022-04-14 20:00] VITALS: BP 111/50
[2022-04-14] MEDS: INSULIN GLARGINE,HUM.REC.ANLOG 100 UNITS/ML SQ SCH (21:29)
[2022-04-14] MEDS: PRAVASTATIN SODIUM 20 MG TABLET PO SCH (21:38)
[2022-04-14] MEDS: TAMSULOSIN HCL 0.4 MG CAPSULE PO SCH (21:38)
[2022-04-14] MEDS ORDERED: SODIUM CHLORIDE 0.9% 250 ML IV ONE (23:27)
[2022-04-15] VITALS (12 sets, daily range): BP systolic 105–133; BP diastolic 52–73
[2022-04-15] MEDS: INSULIN LISPRO 100 UNITS/ML SQ PRN ×4 (00:11→17:48)
[2022-04-15] MEDS: PIPERACILLIN SODIUM/TAZOBACTAM 2.25 GM in DEXTROSE 5%-WATER 50 ML IV SCH ×3 (00:21→17:19)
[2022-04-15 00:46] LABS: GLUCOSE,POINT OF CARE 157 MG/DL (70-110)
[2022-04-15 06:01] LABS: MEAN CORPUSCULAR HEMOGLOBIN 33.3 pg (26.0-34.0); MEAN CORPUSCULAR HGB CONC 33.7 G/dL (31.0-37.0); MEAN CORPUSCULAR VOLUME 99 fL (80-100); PLATELET COUNT (AUTO) 137 K/uL (150-450); RED BLOOD CELL COUNT(AUTO) 1.97 MIL/uL (4.50-5.90); RED CELL DISTRIBUTION WIDTH 20.2 % (11.5-14.5)
[2022-04-15] MEDS: ALBUMIN HUMAN 25%-25GM/100ML 100 ML IV SCH ×3 (06:09→21:16)
[2022-04-15 06:10] LABS: CALCIUM, TOTAL 9.1 mg/dL (8.8-10.5); CREATININE 4.5 mg/dL (0.60-1.30); POTASSIUM 3.8 mmol/L (3.5-5.1)
[2022-04-15 06:46] LABS: GLUCOSE,POINT OF CARE 164 MG/DL (70-110)
[2022-04-15 07:38] LABS: HEMATOCRIT 19.5 % (41-53); HEMOGLOBIN 6.6 g/dL (13.5-17.5)
[2022-04-15 07:45] LABS: BAND NEUTROPHILS % (MANUAL) 2 % (0-5); EOSINOPHILS % (MANUAL) 1 % (1-6); LYMPHOCYTES % (MANUAL) 11 % (22-44); MONOCYTES % (MANUAL) 4 % (2-9); SEGMENTED NEUTROPHILS % 82 % (40-70)
[2022-04-15] MEDS: DOCUSATE SODIUM 100 MG/10 ML LIQUID UDCUP NG SCH ×3 (08:37→20:19)
[2022-04-15] MEDS: APIXABAN 2.5 MG TABLET PO SCH ×2 (08:38→20:08)
[2022-04-15] MEDS: FINASTERIDE 5 MG TABLET PO SCH (08:38)
[2022-04-15] MEDS: CHOLECALCIFEROL (VIT D3) 1,000 UNITS [25 MCG] TABLET PO SCH (08:38)
[2022-04-15] MEDS: PANTOPRAZOLE SODIUM 40 MG DR TABLET PO SCH (08:38)
[2022-04-15] MEDS ORDERED: SODIUM CHLORIDE 0.9% 250 ML IV ONE ×2 (11:14→22:53)
[2022-04-15] MEDS: NYSTATIN 30 GM CREAM TP SCH ×2 (11:15→20:18)
[2022-04-15] MEDS: LevETIRAcetam 500 MG in DEXTROSE 5%-WATER 100 ML IV SCH ×2 (11:16→21:16)
[2022-04-15 17:47] LABS: GLUCOSE,POINT OF CARE 188 MG/DL (70-110)
[2022-04-15] MEDS: TAMSULOSIN HCL 0.4 MG CAPSULE PO SCH (20:08)
[2022-04-15] MEDS: PRAVASTATIN SODIUM 20 MG TABLET PO SCH (20:08)
[2022-04-15] MEDS: INSULIN GLARGINE,HUM.REC.ANLOG 100 UNITS/ML SQ SCH (20:10)
[2022-04-15] MEDS: ACETAMINOPHEN 325 MG TABLET PO PRN (21:15)
[2022-04-15] MEDS: MORPHINE SULFATE 2 MG/ML SYRINGE IVP PRN (22:26)
[2022-04-15 23:01] LABS: GLUCOSE,POINT OF CARE 167 MG/DL (70-110)
[2022-04-16] VITALS: BP 123/63
[2022-04-16] MEDS: PIPERACILLIN SODIUM/TAZOBACTAM 2.25 GM in DEXTROSE 5%-WATER 50 ML IV SCH ×3 (00:57→17:52)
[2022-04-16] MEDS: INSULIN LISPRO 100 UNITS/ML SQ PRN ×5 (00:59→20:47)
[2022-04-16 01:31] LABS: GLUCOSE,POINT OF CARE 207 MG/DL (70-110)
[2022-04-16 04:00] VITALS: BP 119/73
[2022-04-16 05:56] LABS: HEMATOCRIT 21.6 % (41-53); HEMOGLOBIN 7.4 g/dL (13.5-17.5); MEAN CORPUSCULAR HEMOGLOBIN 33.3 pg (26.0-34.0); MEAN CORPUSCULAR VOLUME 98 fL (80-100); PLATELET COUNT (AUTO) 146 K/uL (150-450); RED BLOOD CELL COUNT(AUTO) 2.21 MIL/uL (4.50-5.90); RED CELL DISTRIBUTION WIDTH 19.8 % (11.5-14.5)
[2022-04-16] MEDS: ALBUMIN HUMAN 25%-25GM/100ML 100 ML IV SCH ×3 (05:58→22:35)
[2022-04-16 06:07] LABS: CALCIUM, TOTAL 9.2 mg/dL (8.8-10.5); CREATININE 5.51 mg/dL (0.60-1.30); POTASSIUM 4.4 mmol/L (3.5-5.1)
[2022-04-16 07:03] LABS: BAND NEUTROPHILS % (MANUAL) 2 % (0-5); EOSINOPHILS % (MANUAL) 1 % (1-6); LYMPHOCYTES % (MANUAL) 12 % (22-44); MONOCYTES % (MANUAL) 5 % (2-9); SEGMENTED NEUTROPHILS % 80 % (40-70)
[2022-04-16 08:00] VITALS: BP 115/62
[2022-04-16] MEDS: PANTOPRAZOLE SODIUM 40 MG DR TABLET PO SCH (08:44)
[2022-04-16] MEDS: CHOLECALCIFEROL (VIT D3) 1,000 UNITS [25 MCG] TABLET PO SCH (08:44)
[2022-04-16] MEDS: DOCUSATE SODIUM 100 MG/10 ML LIQUID UDCUP NG SCH ×2 (08:44→20:32)
[2022-04-16] MEDS: APIXABAN 2.5 MG TABLET PO SCH ×2 (08:44→20:32)
[2022-04-16] MEDS: FINASTERIDE 5 MG TABLET PO SCH (08:44)
[2022-04-16] MEDS: NYSTATIN 30 GM CREAM TP SCH ×2 (08:45→20:33)
[2022-04-16] MEDS: LevETIRAcetam 500 MG in DEXTROSE 5%-WATER 100 ML IV SCH (09:45)
[2022-04-16] MEDS: FUROSEMIDE 40 MG/4 ML VIAL IVP SCH (09:45)
[2022-04-16 11:46] LABS: GLUCOSE,POINT OF CARE 183 MG/DL (70-110)
[2022-04-16 12:00] VITALS: BP 121/66
[2022-04-16] MEDS: ACETAMINOPHEN 325 MG TABLET PO PRN (15:01)
[2022-04-16 16:00] VITALS: BP 131/77
[2022-04-16 17:46] LABS: GLUCOSE,POINT OF CARE 234 MG/DL (70-110)
[2022-04-16] MEDS: MORPHINE SULFATE 2 MG/ML SYRINGE IVP PRN (18:15)
[2022-04-16 18:21] LABS: GLUCOSE,POINT OF CARE 178 MG/DL (70-110)
[2022-04-16] MEDS: IPRATROPIUM BROMIDE 0.5 MG/2.5 ML NEB SOLUTION NEB PRN (19:25)
[2022-04-16] MEDS: ALBUTEROL SULFATE 2.5 MG/0.5 ML NEB SOLUTION NEB PRN (19:25)
[2022-04-16] MEDS: PROPOFOL 1000 MG/ISO-OSM 100 ML IV PRN ×2 (19:59→22:12)
[2022-04-16 20:00] VITALS: BP 92/47
[2022-04-16 20:23] LABS: ABG BASE EXCESS -10.5 mmol/L (-2.0-3.0); ABG HCO3 16.4 mmol/L (22.0-26.0); ABG METHEMOGLOBIN 0.3 % (0.0-1.5); ABG OXYGEN SATURATION 96.2 % (95.0-98.0); ABG PCO2 50 mmHg (35-45); PO2, ARTERIAL BG 107.2 mmHg (71.0-79.0); SOURCE, BLOOD GAS ARTERIAL; TEMPERATURE, FAHRENHEIT, BG 99.9 FAHREN (96.0-98.6)
[2022-04-16 20:26] LABS: ABG PH 7.172 (7.35-7.450); ABG TOTAL HEMOGLOBIN 7.4 G/dL (12.0-18.0); SITE, BLOOD GAS LFT RADIAL
[2022-04-16 20:27] LABS: O2 DEVICE,BLOOD GAS VENTILATOR (ROOM AIR); PEEP,BG 5 cm H2O; VT, ABG 460 ml
[2022-04-16 20:28] LABS: SPONTANEOUS VT, BG 511 ml
[2022-04-16] MEDS: NOREPINEPHRINE 8 MG/D5%-WATER 250 ML IV PRN (20:32)
[2022-04-16] MEDS: PRAVASTATIN SODIUM 20 MG TABLET PO SCH (20:32)
[2022-04-16] MEDS: INSULIN GLARGINE,HUM.REC.ANLOG 100 UNITS/ML SQ SCH (20:46)
[2022-04-16 20:56] LABS: GLUCOSE,POINT OF CARE 197 MG/DL (70-110)
[2022-04-16] MEDS: TAMSULOSIN HCL 0.4 MG CAPSULE PO SCH (22:12)
[2022-04-17] VITALS: BP 107/56
[2022-04-17] MEDS: LevETIRAcetam 500 MG in DEXTROSE 5%-WATER 100 ML IV SCH ×3 (00:18→21:23)
[2022-04-17] MEDS: PIPERACILLIN SODIUM/TAZOBACTAM 2.25 GM in DEXTROSE 5%-WATER 50 ML IV SCH ×3 (00:20→16:04)
[2022-04-17 04:00] VITALS: BP 112/55
[2022-04-17 05:04] LABS: ABG BASE EXCESS -10.4 mmol/L (-2.0-3.0); ABG CARBOXYHEMOGLOBIN 2.3 % (0.0-1.5); ABG HCO3 16.8 mmol/L (22.0-26.0); ABG METHEMOGLOBIN 0.3 % (0.0-1.5); ABG OXYGEN CONTENT 10.5 mL/dL (15.0-23.0); ABG OXYGEN SATURATION 97.6 % (95.0-98.0); ABG OXYHEMOGLOBIN 95.1 % (94.0-100.0); ABG PCO2 29 mmHg (35-45); ABG PH 7.346 (7.35-7.450); PO2, ARTERIAL BG 99.4 mmHg (71.0-79.0); SOURCE, BLOOD GAS ARTERIAL; TEMPERATURE, FAHRENHEIT, BG 98.3 FAHREN (96.0-98.6)
[2022-04-17 05:06] LABS: ABG TOTAL HEMOGLOBIN 7.7 G/dL (12.0-18.0); SITE, BLOOD GAS LFT RADIAL
[2022-04-17 05:07] LABS: ABG A-A DIFF O2 153.1 mmHg (10-20.0); O2 DEVICE,BLOOD GAS VENTILATOR (ROOM AIR); VT, ABG 460 ml
[2022-04-17 05:08] LABS: PEEP,BG 5 cm H2O; SPONTANEOUS VT, BG 467 ml
[2022-04-17] MEDS: INSULIN LISPRO 100 UNITS/ML SQ PRN ×3 (06:00→17:40)
[2022-04-17] MEDS: ALBUMIN HUMAN 25%-25GM/100ML 100 ML IV SCH ×3 (06:00→21:21)
[2022-04-17 07:06] LABS: GLUCOSE,POINT OF CARE 207 MG/DL (70-110)
[2022-04-17] MEDS: PROPOFOL 1000 MG/ISO-OSM 100 ML IV PRN ×3 (07:19→22:49)
[2022-04-17 08:00] VITALS: BP 122/55
[2022-04-17] MEDS: CHOLECALCIFEROL (VIT D3) 1,000 UNITS [25 MCG] TABLET PO SCH (08:49)
[2022-04-17] MEDS: FINASTERIDE 5 MG TABLET PO SCH (08:49)
[2022-04-17] MEDS: APIXABAN 2.5 MG TABLET PO SCH ×2 (08:49→20:37)
[2022-04-17] MEDS: FUROSEMIDE 40 MG/4 ML VIAL IVP SCH (08:49)
[2022-04-17] MEDS: DOCUSATE SODIUM 100 MG/10 ML LIQUID UDCUP NG SCH ×2 (08:49→20:37)
[2022-04-17] MEDS: PANTOPRAZOLE SODIUM 40 MG DR TABLET PO SCH (08:49)
[2022-04-17] MEDS: EPOETIN ALFA 10,000 UNITS/ML VIAL SQ SCH (08:50)
[2022-04-17] MEDS: NYSTATIN 30 GM CREAM TP SCH ×2 (08:50→21:09)
[2022-04-17] MEDS: NOREPINEPHRINE 8 MG/D5%-WATER 250 ML IV PRN (09:41)
[2022-04-17 12:00] VITALS: BP 115/54
[2022-04-17 13:01] LABS: GLUCOSE,POINT OF CARE 217 MG/DL (70-110)
[2022-04-17 16:00] VITALS: BP 110/58
[2022-04-17 19:25] LABS: GLUCOSE,POINT OF CARE 202 MG/DL (70-110)
[2022-04-17 20:00] VITALS: BP 102/53
[2022-04-17] MEDS: PRAVASTATIN SODIUM 20 MG TABLET PO SCH (20:37)
[2022-04-17] MEDS: TAMSULOSIN HCL 0.4 MG CAPSULE PO SCH (20:37)
[2022-04-17] MEDS: INSULIN GLARGINE,HUM.REC.ANLOG 100 UNITS/ML SQ SCH (20:39)
[2022-04-18] VITALS: BP 108/53
[2022-04-18] MEDS: PIPERACILLIN SODIUM/TAZOBACTAM 2.25 GM in DEXTROSE 5%-WATER 50 ML IV SCH ×2 (00:09→08:02)
[2022-04-18 01:01] LABS: GLUCOSE,POINT OF CARE 177 MG/DL (70-110)
[2022-04-18] MEDS: INSULIN LISPRO 100 UNITS/ML SQ PRN ×2 (01:04→06:27)
[2022-04-18 01:46] LABS: GLUCOSE,POINT OF CARE 170 MG/DL (70-110)
[2022-04-18 04:00] VITALS: BP 101/52
[2022-04-18] MEDS: PROPOFOL 1000 MG/ISO-OSM 100 ML IV PRN (05:53)
[2022-04-18] MEDS: ALBUMIN HUMAN 25%-25GM/100ML 100 ML IV SCH (06:17)
[2022-04-18] MEDS: NOREPINEPHRINE 8 MG/D5%-WATER 250 ML IV PRN (06:41)
[2022-04-18 08:00] VITALS: BP 100/51
[2022-04-18] MEDS: NYSTATIN 30 GM CREAM TP SCH (08:02)
[2022-04-18] MEDS: PANTOPRAZOLE SODIUM 40 MG DR TABLET PO SCH (08:02)
[2022-04-18] MEDS: CHOLECALCIFEROL (VIT D3) 1,000 UNITS [25 MCG] TABLET PO SCH (08:02)
[2022-04-18] MEDS: FUROSEMIDE 40 MG/4 ML VIAL IVP SCH (08:02)
[2022-04-18] MEDS: FINASTERIDE 5 MG TABLET PO SCH (08:02)
[2022-04-18] MEDS: APIXABAN 2.5 MG TABLET PO SCH (08:03)
[2022-04-18] MEDS: DOCUSATE SODIUM 100 MG/10 ML LIQUID UDCUP NG SCH (08:03)
[2022-04-18] MEDS: IPRATROPIUM BROMIDE 0.5 MG/2.5 ML NEB SOLUTION NEB PRN (08:08)
[2022-04-18] MEDS: ALBUTEROL SULFATE 2.5 MG/0.5 ML NEB SOLUTION NEB PRN (08:08)
[2022-04-18 09:01] LABS: GLUCOSE,POINT OF CARE 185 MG/DL (70-110)
[2022-04-18] MEDS: LevETIRAcetam 500 MG in DEXTROSE 5%-WATER 100 ML IV SCH (09:30)
[2022-04-18] MEDS: MORPHINE SULFATE 2 MG/ML SYRINGE IVP PRN (09:31)
[2022-04-18 12:00] VITALS: BP 122/58
[2022-04-18] MEDS ORDERED: MORPHINE SULFATE 100 MG/NS/PF 100 ML IV PRN (14:45)
[2022-04-18] MEDS ORDERED: DiphenhydrAMINE HCL 50 MG/ML VIAL IVP PRN (14:45)
[2022-04-18] MEDS ORDERED: ONDANSETRON HCL 4 MG/2 ML VIAL IVP PRN (14:45)
[2022-04-18 20:51] LABS: GLUCOSE,POINT OF CARE 185 MG/DL (70-110)
== END 2022-04-18 15:30 | DRG 70 ==
LOC: EMS 13:34 → 5S 23:30 → ICU 04-02 13:01
PROVIDERS: ADMIT Internal Medicine; ATTEND Internal Medicine
PROC: 5A1955Z Respiratory Ventilation, Greater than 96 Consecutive Hours (ICD-10-PCS; principal; 2022-04-02)
PROC: 0BH17EZ Insertion of Endotracheal Airway into Trachea, Via Natural or Artificial Opening (ICD-10-PCS; 2022-04-02)
PROC: 05HB33Z Insertion of Infusion Device into Right Basilic Vein, Percutaneous Approach (ICD-10-PCS; 2022-04-02)
PROC: 4A00X4Z Measurement of Central Nervous Electrical Activity, External Approach (ICD-10-PCS; 2022-04-05)
DX: G93.41 Metabolic encephalopathy (principal); J69.0 Pneumonitis due to inhalation of food and vomit; J96.01 Acute respiratory failure with hypoxia; N17.0 Acute kidney failure with tubular necrosis; E44.0 Moderate protein-calorie malnutrition; E87.0 Hyperosmolality and hypernatremia; I48.20 Chronic atrial fibrillation, unspecified; R57.9 Shock, unspecified; R65.10 Systemic inflammatory response syndrome (SIRS) of non-infectious origin without acute organ dysfunction; G93.1 Anoxic brain damage, not elsewhere classified; E86.0 Dehydration; I46.9 Cardiac arrest, cause unspecified; E11.22 Type 2 diabetes mellitus with diabetic chronic kidney disease; E78.5 Hyperlipidemia, unspecified; I12.9 Hypertensive chronic kidney disease with stage 1 through stage 4 chronic kidney disease, or unspecified chronic kidney disease; N18.30 Chronic kidney disease, stage 3 unspecified; E11.40 Type 2 diabetes mellitus with diabetic neuropathy, unspecified; G25.3 Myoclonus; K21.9 Gastro-esophageal reflux disease without esophagitis; N40.0 Benign prostatic hyperplasia without lower urinary tract symptoms; R13.12 Dysphagia, oropharyngeal phase; Z20.822 Contact with and (suspected) exposure to COVID-19; D64.9 Anemia, unspecified; D69.6 Thrombocytopenia, unspecified; F03.90 Unspecified dementia, unspecified severity, without behavioral disturbance, psychotic disturbance, mood disturbance, and anxiety; J45.909 Unspecified asthma, uncomplicated; Z66 Do not resuscitate; Z79.01 Long term (current) use of anticoagulants; Z86.73 Personal history of transient ischemic attack (TIA), and cerebral infarction without residual deficits; I25.2 Old myocardial infarction; Z78.1 Physical restraint status; Z68.28 Body mass index [BMI] 28.0-28.9, adult; Z91.81 History of falling
CPT/HCPCS: 36245; 36569; 36600; 70450; 70496; 70498; 71045; 74018; 74019; 76770; 76937; 80048; 80053; 81001; 82805; 82948; 82962; 83605; 83735; 84100; 84484; 85007; 85025; 85027; 85610; 85730; 86850; 86900; 86901; 86923; 87070; 87086; 87186; 87205; 92526; 92610; 93005; 93306; 94002; 94003; 95816; 99291; G0238; G0378; J0171; J0360; J0461; J0610; J0712; J0885; J1265; J1644; J1815; J1940; J1956; J2060; J2270; J2543; J2704; J3490; J7040; J7042; J7050; J7060; P9016; P9046; Q9967; 36415-L1; 36415-TC; J7613